=== PATIENT | male | born 1955 ===

== ENCOUNTER → 2022-09-04 09:47 | Outpatient (BNVA) | payer BC, SELFPAY | PROVIDERS: PCP Pediatrics; Visit Provider Nurse Practitioner Family | DX: R97.20 Elevated prostate specific antigen [PSA] (principal); R35.1 Nocturia; N40.0 Benign prostatic hyperplasia without lower urinary tract symptoms | CPT/HCPCS: 51798 ==

== ENCOUNTER 2022-09-22 07:32 | Outpatient (REF) | payer BC, SELFPAY ==
[2022-09-22 12:59] LABS: PSA,Total (Free>4and<10) 3.84 ng/mL (0.00-4.00)
== END 2022-09-22 07:33 | disposition home or self-care (01) ==
LOC: HO.10HDL 07:32
PROVIDERS: Visit Provider Urology
DX: Z12.5 Encounter for screening for malignant neoplasm of prostate (principal); R97.20 Elevated prostate specific antigen [PSA]
CPT/HCPCS: 36415; 84153

== ENCOUNTER 2022-09-22 11:18 | Outpatient (REF) | payer BC, SELFPAY ==
--- NOTE | ~2022-09-22 | US_ITS ---
EXAMINATION: US RETROPERITONEAL COMPLETE (RENAL) CLINICAL INFORMATION: Elevated PSA and BPH. COMPARISON: None. TECHNIQUE: Real-time imaging of the kidneys and bladder. FINDINGS: RIGHT KIDNEY: 10.8 x 6.1 x 6.2 cm (SAG x AP x TRV). The kidney is normal in size, contour, and echogenicity. Renal cortical thickness is normal. No calculi or focal parenchymal lesions. No hydronephrosis. LEFT KIDNEY: 10.6 x 6.1 x 6.2 cm (SAG x AP x TRV). The kidney is normal in size, contour, and echogenicity. Renal cortical thickness is normal. Bosniak class I parapelvic cysts are noted measuring 1.3 and 0.9 cm. These need no additional imaging or follow-up. No solid renal masses. No calculi or focal parenchymal lesions. No hydronephrosis. BLADDER: Well distended and normal. Bilateral ureteral jets are demonstrated. Prevoid bladder volume is 190 mL. Postvoid bladder volume is 22 mL. Prostate is mild to moderately enlarged at 52 g. US/US retroperitoneal comp IMPRESSION: [id number] BPH with 52 g prostate and 22 mL postvoid residual.
== END 2022-09-22 11:19 | disposition home or self-care (01) ==
LOC: HO.HMGCX 11:18
PROVIDERS: PCP Pediatrics; Visit Provider Urology
DX: N40.0 Benign prostatic hyperplasia without lower urinary tract symptoms (principal); R97.20 Elevated prostate specific antigen [PSA]
CPT/HCPCS: 76770

== ENCOUNTER → 2022-09-25 10:29 | Outpatient (BNVA) | payer BC, SELFPAY | PROVIDERS: PCP Pediatrics; Visit Provider Nurse Practitioner Family | DX: Z13.89 Encounter for screening for other disorder (principal) ==

== ENCOUNTER → 2022-10-10 09:55 | Outpatient (BNVA) | payer BC, SELFPAY | PROVIDERS: PCP Pediatrics; Visit Provider Nurse Practitioner Family | DX: Z13.89 Encounter for screening for other disorder (principal) ==

== ENCOUNTER → 2022-12-12 09:17 | Outpatient (BNVA) | payer MEDICARE, BC, SELFPAY | PROVIDERS: PCP Pediatrics; Visit Provider Nurse Practitioner Family | DX: N40.0 Benign prostatic hyperplasia without lower urinary tract symptoms (principal); R97.20 Elevated prostate specific antigen [PSA]; N41.9 Inflammatory disease of prostate, unspecified; R35.1 Nocturia; Z79.899 Other long term (current) drug therapy | CPT/HCPCS: 51798; 99212 ==

== ENCOUNTER 2023-03-09 12:15 | Outpatient (REF) | payer MEDICARE, BC, SELFPAY | END 2023-03-09 12:16 | disposition home or self-care (01) | LOC: HO.WFDLDS 12:15 | PROVIDERS: Visit Provider Nurse Practitioner Family | DX: N40.0 Benign prostatic hyperplasia without lower urinary tract symptoms (principal); R97.20 Elevated prostate specific antigen [PSA]; Z12.5 Encounter for screening for malignant neoplasm of prostate | CPT/HCPCS: 36415; 84153 ==

== ENCOUNTER 2023-03-17 09:18 | Outpatient (AMB) | payer MEDICARE, BC, SELFPAY ==
--- NOTE | 2023-03-17 09:22 | MHC.OFFVIS ---
Intake Intake Visit Reasons: 3m/labs Intake Note: Patient is present for follow up labs/BPH/Elevated PSA/Prostitis/Nocturia Urology Medications: finasteride/terazosin Blood Thinner: none PVR:26ml Long Chain Dyeing Machine Operator Required: No Accompanied by: Self / Same As Patient Allergies No Known Allergies Allergy (Verified 12/12/22 10:21) Medication List - Last Reconciled 03/17/23 by BRIAN Vaughn- finasteride 5 mg PO BEDTIME 90 days terazosin 5 mg PO BEDTIME HPI HPI Comments History of Present Illness Details Gee is a pleasant 67 year old male patient of Dr. Barber who is being seen today for a follow up of his lower urinary tract symptoms. Of note patient, patient was seen approximately 3 months ago at which time he was started on Finasteride and Terazosin 5mg daily. In discussion with the patient today he reports to be doing and feeling well. He reports ongoing lower urinary issues have been intermittent in nature. He discusses symptoms of weak stream, noctutria and a feeling of irritation to the head/tip of his penis during and after urination. He states symptoms tend to improve with increase in hydration. His microgen from 10/06 was negative for microbial indication. He has been treated previously for prostatitis. He reports that symtpoms are vague and there are days where he feels his symptoms of nocturia are 2-4 times per night but then for instance last night he only got up once to urinate. He reports intermittent episodes of random sharp/irritated like pains to the tip of his penis/urethera. When asked patient reports compliance with finasteride. However, discusses taking terazosin as needed.?When asked patient denies hematuria, flank pain, fever, and or chills. Discussed at length importance of taking medication as prescribed. Patient reporting it is difficult to be complaint with urological medications as he finds it challenging for him to accept taking medications daily as this is new for him. He otherwise denies any other urological issues or concerns. He discusses his recent travel to [place]. In office urinalysis results reviewed with the patient today. PVR 26 mL. PSAs are as follows: 09/22--3.8 03/22--2.7 Previous imaging includes as retroperitoneal ultrasound: Right kidney with no calculi, lesions, and or hydronephrosis. Left kidney with Bosniak class 1 peripelvic cyst measuring 1.3 and 0.9 cm. Per radiology reports these need no additional imaging or follow-up. No calculi or lesions noted within the left kidney. The bladder is well distended and normal. Pre void bladder volume is approximately 200 mL. Postvoid bladder volume is approximately 20 mL. Prostate is mildly to moderately enlarged at 52 g. PFSH Medical History Anxiety Herpes genitalia Hyperlipidemia Seasonal allergies Urinary frequency Family History Mother Breast cancer Father Colon cancer Review of Systems Const Reports no additional complaints Eyes Reports no additional complaints ENT Reports no additional complaints Card Reports no additional complaints Resp Reports no additional complaints GI Reports no additional complaints Reports as per HPI Musc Reports no additional complaints Psych Details: patient reports issues with sleeping. He reports going to bed early and then being up early. Reports abnormal sleep pattern Endo Reports no additional complaints Physical Exam Const General: cooperative, healthy appearing, comfortable, no acute distress, well developed, alert and awake Nutritional Appearance: average body habitus Orientation/consciousness: patient oriented x3 Limitations: no limitations HEENT Head: Yes normal to inspection, Yes normocephalic and Yes atraumatic Eyes General: appearance normal, both eyes and all related structures Neck Neck: Yes normal visual inspection and Yes trachea midline Chest Chest palpation & inspection: normal inspection of the chest Cardio Rate: regular rate GI Inspection: Yes normal to inspection General: Yes no CVA tenderness Back/Spine/Pelvis Back: no CVA tenderness Skin General skin exam: no rashes or lesions noted Neuro General: patient oriented x3 Extrem General: Yes normal to inspection Psych Appearance: grossly normal and well kempt Mental Status: mental status grossly normal Speech and movement: Clear speech present Affect: normal affect Attitude: cooperative Thought process: Normal thought process present Thought content: Normal thought content present Insight: Fair insight present (Psych) Judgement: Fair judgement present (Psych) Office Procedures Post Void Residual Post Residual Void Post Void Residual (PVR): 26 [id number] Void Residual by ultrasound Results AMB Urinalysis, Automated UA Leukoctes 0 Sandra/uL Last Edit by Mally Chinchilla on 03/17/23 09:45 UA Nitrite Negative Last Edit by Mally Chinchilla on 03/17/23 09:45 UA Urobilinogen 0.2 mg/dL Last Edit by Mally Chinchilla on 03/17/23 09:45 UA Protein 15 mg/dL Last Edit by Mally Chinchilla on 03/17/23 09:45 UA pH 5.5 Last Edit by Mally Chinchilla on 03/17/23 09:45 UA Blood 0 Rashaad/uL Last Edit by Mally Chinchilla on 03/17/23 09:45 UA Specific [place] 1.030 Last Edit by Mally Chinchilla on 03/17/23 09:45 UA Ketone Negative Last Edit by Mally Chinchilla on 03/17/23 09:45 UA Bilirubin 0 mg/dL Last Edit by Mally Chinchilla on 03/17/23 09:45 UA Glucose 0 mg/dL Last Edit by Mally Chinchilla on 03/17/23 09:45 Results Reviewed Results Reviewed: Laboratory Last Values Urine pH (Auto) 5.5 03/17/23 09:27 Specific [place] (Auto) 1.030 03/17/23 09:27 Urine Protein (Auto) 15 mg/dL 03/17/23 09:27 Glucose (UA)(Auto) 0 mg/dL 03/17/23 09:27 Urine Ketones (Auto) Negative 03/17/23 09:27 Urine Blood (Auto) 0 Rashaad/uL 03/17/23 09:27 Urine Nitrite (Auto) Negative 03/17/23 09:27 Urine Bilirubin (Auto) 0 mg/dL 03/17/23 09:27 Urine Urobilinogen (Auto) 0.2 mg/dL 03/17/23 09:27 Leukocyte Esterase (Auto) 0 Sandra/uL 03/17/23 09:27 Assessment & Plan Assessment & Plan (1) Lower urinary tract symptoms: Code(s): R39.9 - Unspecified symptoms and signs involving the genitourinary system (2) Enlarged prostate: Code(s): N40.0 - Benign prostatic hyperplasia without lower urinary tract symptoms Plan In office urinalysis results reviewed with the patient today. PVR 26 mL. Recent PSA results reviewed with the patient today. Continue finasteride and terazosin as discussed and prescribed. Discussed at length importance of taking medications as prescribed Discussed, educated, encouraged to continue drinking plenty of water daily. Discussed limiting fluids 3-4 hours prior to bed to assist with decreasing episodes of nocturia. Patient with intermittent/vague lower urinary tract symptoms. Discussed recovery of prostatitis can take a few months Follow-up in office cystoscopy for further assessment evaluation. Orders: Orders AMB Urinalysis Automated 03/17/23 N40.0 - Benign prostatic hyperplasia without lower urinary tract symptoms, Z13.9 - Encounter for screening, unspecified AMB Post Void Residual by ultrasound 03/17/23 N40.0 - Benign prostatic hyperplasia without lower urinary tract symptoms Medications: New doxycycline hyclate 100 mg PO BID 14 days 28 tabs 0RF Patient Instructions: The patient had an opportunity to ask questions regarding the treatment plan. All questions were answered. Physical exam, labs, and imaging were discussed and reviewed in detail. As well as risks, benefits, and discussion of treatment choices. No major barriers to understanding were identified. The patient expressed understanding and agreement with the above treatment plan. The patient was made aware they should contact our office by phone for worsening of their current condition, the appearance of new symptoms, or with any questions or concerns. Compliance is encouraged with any medications and follow up testing that is ordered. It is a privilege to be allowed the opportunity to participate in? your urological care.? Again, if you have any questions or concerns If you have any questions or concerns please do not hesitate to contact me. The office is [phone]. This note is constructed using voice recognition software. While every effort has been made to ensure accuracy head of visual merchandising errors may have been included. Yours sincerely, EVAN Vaughn Coding Level of Care Code Est Pt Level 4 (78414) Diagnoses Lower urinary tract symptoms R39.9 Enlarged prostate N40.0 CPT Codes Post Residual Void - PVR CPT Code: 43186-Ciix Void Residual by ultrasound ([id number])
== END 2023-03-17 10:08 | disposition home or self-care (01) ==
PROVIDERS: Visit Provider Nurse Practitioner Family
DX: R39.9 Unspecified symptoms and signs involving the genitourinary system (principal); N40.0 Benign prostatic hyperplasia without lower urinary tract symptoms
CPT/HCPCS: 99214

== ENCOUNTER → 2023-03-17 09:18 | Outpatient (BNVA) | payer MEDICARE, BC, SELFPAY | PROVIDERS: Visit Provider Nurse Practitioner Family | DX: N40.1 Benign prostatic hyperplasia with lower urinary tract symptoms (principal); N13.8 Other obstructive and reflux uropathy; R39.9 Unspecified symptoms and signs involving the genitourinary system; N41.9 Inflammatory disease of prostate, unspecified; R97.20 Elevated prostate specific antigen [PSA]; R35.1 Nocturia; R39.12 Poor urinary stream; N48.89 Other specified disorders of penis; Z79.899 Other long term (current) drug therapy | CPT/HCPCS: 51798; 99212 ==

== ENCOUNTER 2023-05-01 08:48 | Outpatient (AMB) | payer MEDICARE, BC, SELFPAY ==
--- NOTE | 2023-05-01 09:04 | A.OFFVIS_ITS ---
Intake Intake Visit Reasons: cysto Intake Note: Patient is present for Cystoscopy Urology Med: Finasteride, Terazosin, Antibiotic Allergy: None Blood Thinner: None Pharmacy: [facility] Cystoscope used during Procedure LOT#: [id number] EXP: 01/11/2025 Allergies No Known Allergies Allergy (Verified 05/01/23 09:05) Medication List - Last Reconciled 05/01/23 by Manpreet Ramos MD doxycycline hyclate 100 mg PO BID 14 days finasteride 5 mg PO BEDTIME 90 days terazosin 5 mg PO BEDTIME trimethoprim 100 mg PO DAILY 90 days HPI HPI Comments History of Present Illness Details Neck is a pleasant male. He is a patient of Dr. Barber. He seen for the following urologic conditions - lower urinary tract symptoms - urinary tract infection Completed 2 weeks doxycycline for feeling of irritation at the tip of the penis Appeared to respond well PVR 30 cc Continue prostate medications Lower urinary tract symptoms Initial symptom presentation weakness of stream, nocturia and feelings in her taken Prior treatment for prostatitis Reports compliance with finasteride and takes terazosin on a p.r.n. basis Is adverse to taking medications PSA 03/22 2.7 Retroperitoneal ultrasound left kidney Bosniak 1 cyst, prostate 50 g PFSH Medical History Anxiety Herpes genitalia Hyperlipidemia Seasonal allergies Urinary frequency Family History Mother Breast cancer Father Colon cancer Review of Systems Const Denies chills and Denies fever(s) Card Reports no additional complaints and Denies syncope Resp Denies cough GI Denies abdominal pain and Denies heartburn Reports as per HPI and Denies change in libido Neuro Denies syncope Psych Denies change in libido Endo Denies change in libido Physical Exam Const General: cooperative, healthy appearing, comfortable and no acute distress Orientation/consciousness: patient oriented x3 HEENT Face and sinus: Yes normal facial exam Mouth: moist mucous membranes Neck Neck: Yes normal visual inspection, Yes full ROM and Yes trachea midline Chest Chest palpation & inspection: normal inspection of the chest Resp Effort & Inspection: normal respiratory effort, able to speak in complete sentences and no respiratory distress GI Inspection: Yes normal to inspection Back/Spine/Pelvis Cervical Spine: normal cervical lordosis Thoracic/Lumbar Spine: thoracic and lumbar spine normal to inspection Skin General skin exam: no rashes or lesions noted Neuro General: patient oriented x3, gait normal, tone normal and moves all extremities Extrem General: Yes normal to inspection and Yes capillary refill normal Office Procedures Cystoscopy Consent Discussed risk and benefit or proposed procedure with the patient. Information consent for procedure given to the patient. Discussed technical aspects, risks, benefits and alternatives in full. Addressed all of the patient's questions and concerns regarding the procedure. The patient demonstrated knowledge and understanding. They wish to proceed with this procedure. Preparation The patient was prepped in the usual manner. A recycling crew supervisor was present and in the room. Genitalia was prepped with betadine solution in a sterile manner. Lidocaine Jelly 2% was placed into the urethra and 16Fr flexible Olympus cystoscope was inserted into the meatus after adequate lubrication. 62109-Qydrmfynvu DISPOSABLE SCOPE URO-G FLEXIBLE SCOPE Procedure code (CPT) selection complete Office Meds lidocaine HCl 2 % mucosal jelly in applicator Performing Provider: Manpreet Ramos MD Performing Location: [facility] Administered by: Kelsey Steiner RN on 05/01/23 09:18 Dose Route Admin Location Dispensed Lot Number Expiration Date NDC Maintenance Helper 10 mL intra-urethral 10 mL nitrofurantoin monohydrate/macrocrystals 100 mg capsule Performing Provider: Manpreet Ramos MD Performing Location: [facility] Administered by: Kelsey Steiner RN on 05/01/23 09:18 Dose Route Admin Location Dispensed Lot Number Expiration Date NDC Maintenance Helper 100 mg PO 1 cap naproxen 500 mg tablet Performing Provider: Manpreet Ramos MD Performing Location: [facility] Administered by: Kelsey Steiner RN on 05/01/23 09:18 Dose Route Admin Location Dispensed Lot Number Expiration Date NDC Maintenance Helper 500 mg PO 1 tab Results AMB Urinalysis, Automated UA Leukoctes 0 Sandra/uL Last Edit by RICHELLE Sanon on 05/01/23 09:11 UA Nitrite Negative Last Edit by RICHELLE Sanon on 05/01/23 09:11 UA Urobilinogen 0.2 mg/dL Last Edit by RICHELLE Sanon on 05/01/23 09:1 1 UA Protein 0 mg/dL Last Edit by Skye Mccullough A on 05/01/23 09:11 UA pH 5.0 Last Edit by Skye Mccullough, A on 05/01/23 09:11 UA Blood 0 Rashaad/uL Last Edit by Skye Mccullough, A on 05/01/23 09:11 UA Specific [place] 1.020 Last Edit by Skye Mccullough A on 05/01/23 09: 11 UA Ketone Negative Last Edit by Skye Mccullough, RMA on 05/01/23 09:11 UA Bilirubin 0 mg/dL Last Edit by Skye Mccullough, A on 05/01/23 09:11 UA Glucose 0 mg/dL Last Edit by Skye Mccullough A on 05/01/23 09:11 Results Reviewed Results Reviewed: Laboratory Last Values Urine pH (Auto) 5.0 05/01/23 09:05 Specific [place] (Auto) 1.020 05/01/23 09:05 Urine Protein (Auto) 0 mg/dL 05/01/23 09:05 Glucose (UA)(Auto) 0 mg/dL 05/01/23 09:05 Urine Ketones (Auto) Negative 05/01/23 09:05 Urine Blood (Auto) 0 Rashaad/uL 05/01/23 09:05 Urine Nitrite (Auto) Negative 05/01/23 09:05 Urine Bilirubin (Auto) 0 mg/dL 05/01/23 09:05 Urine Urobilinogen (Auto) 0.2 mg/dL 05/01/23 09:05 Leukocyte Esterase (Auto) 0 Sandra/uL 05/01/23 09:05 Assessment & Plan Assessment & Plan (1) Lower urinary tract symptoms: Code(s): R39.9 - Unspecified symptoms and signs involving the genitourinary system (2) Nocturia: Code(s): R35.1 - Nocturia (3) Prostatitis: Code(s): N41.9 - Inflammatory disease of prostate, unspecified Qualifiers: Prostatitis type: chronic Qualified Code(s): N41.1 - Chronic prostatitis Plan Trial daily low-dose trimethoprim Orders: Orders AMB Urinalysis Automated 05/01/23 Z13.9 - Encounter for screening, unspecified AMB Cystoscopy 05/01/23 N40.0 - Benign prostatic hyperplasia without lower urinary tract symptoms Medications: New trimethoprim 100 mg PO DAILY 90 tabs 1RF 90 days N41.9 - Inflammatory disease of prostate, unspecified, R33.9 - Retention of urine, unspecified Patient Instructions: Imaging studies, laboratory and physical exam results were discussed and reviewed in detail. No major barriers to patient understanding were identified. An opportunity to ask questions regarding the treatment plan was provided. All questions were answered. The patient expressed understanding and agreement with the above treatment plan. The patient is aware they should contact our office by phone for worsening of their current condition or the appearance of new urologic symptoms. Compliance is encouraged with any medications and followup testing that is ordered. It is a privilege to participate in the urologic care of your patient. If you have any questions or concerns regarding treatment for the above conditions, or other urologic issues, please do not hesitate to contact me. The office te tomas contact is [phone]. This note is constructed using voice recognition software. While every effort has been made to ensure accuracy automatic machines supervisor errors may have been included. Yours sincerely, Dr Manpreet Ramos MD, [facility] - Urology Providers of Expert, Compassionate Care for the Genitourinary System Coding Level of Care Code Est Pt Level 4 (36929) Diagnoses Lower urinary tract symptoms R39.9 Nocturia R35.1 Chronic prostatitis N41.1 Prostatitis type: chronic CPT Codes Cystoscopy - CPT: 37158-Snkcogyykt ([id number]) Cystoscopy - CPT: DISPOSABLE SCOPE URO-G FLEXIBLE SCOPE ([id number])
== END 2023-05-01 09:50 | disposition home or self-care (01) ==
PROVIDERS: PCP Pediatrics; Visit Provider Urology
DX: N40.0 Benign prostatic hyperplasia without lower urinary tract symptoms (principal); Z13.9 Encounter for screening, unspecified
CPT/HCPCS: 52000

== ENCOUNTER → 2023-05-01 08:48 | Outpatient (BNVA) | payer MEDICARE, BC, SELFPAY | PROVIDERS: PCP Pediatrics; Visit Provider Urology | DX: R39.9 Unspecified symptoms and signs involving the genitourinary system (principal); R35.1 Nocturia; N41.1 Chronic prostatitis | CPT/HCPCS: 52000; 81003; C1747 ==

== ENCOUNTER 2023-09-18 08:47 | Outpatient (AMB) | payer MEDICARE, BC, SELFPAY ==
--- NOTE | 2023-09-18 08:55 | A.OFFVIS_ITS ---
Intake Intake Visit Reasons: 3M Med Review(Trimethoprim) Intake Note: Patient is Present for Follow Up Med review Urology Medication: Finasteride, Terazosin, Trimethoprim Antibiotic Allergies: None Blood Thinners: None PVR: 40 Allergies No Known Allergies Allergy (Verified 09/18/23 08:59) HPI HPI Comments History of Present Illness Details Neck is a pleasant male. He is a patient of Dr. Barber. He seen for the following urologic conditions - lower urinary tract symptoms - urinary tract infection - pelvic floor dysfunction - prostatitis Ongoing grumbling prostatitis Seems to be controlled on daily trimethoprim DAVID shows tight pelvic floor left anterior side of pelvis Recommend pelvic floor physical therapy Six-month follow-up Lower urinary tract symptoms Initial symptom presentation weakness of stream, nocturia and feelings in her taken Prior treatment for prostatitis Reports compliance with finasteride and takes terazosin on a p.r.n. basis Is adverse to taking medications PSA 03/22 2.7 Retroperitoneal ultrasound left kidney Bosniak 1 cyst, prostate 50 g PFSH Medical History Urinary frequency Seasonal allergies Hyperlipidemia Herpes genitalia Anxiety Family History Mother Breast cancer Father Colon cancer Review of Systems Const Denies chills and Denies fever(s) Card Reports no additional complaints and Denies syncope Resp Denies cough GI Denies abdominal pain and Denies heartburn Reports as per HPI and Denies change in libido Neuro Denies syncope Psych Denies change in libido Endo Denies change in libido Physical Exam Const General: cooperative, healthy appearing, comfortable and no acute distress Orientation/consciousness: patient oriented x3 HEENT Face and sinus: Yes normal facial exam Mouth: moist mucous membranes Neck Neck: Yes normal visual inspection, Yes full ROM and Yes trachea midline Chest Chest palpation & inspection: normal inspection of the chest Resp Effort & Inspection: normal respiratory effort, able to speak in complete sentences and no respiratory distress GI Inspection: Yes normal to inspection Rectal Exam - Male: Yes normal sphincter tone and Yes prostate normal Male General Exam: Yes normal external exam Penis: normal penis and circumcised Meatus: meatus normal Scrotum: scrotum normal Testes: Testes normal Back/Spine/Pelvis Cervical Spine: normal cervical lordosis Thoracic/Lumbar Spine: thoracic and lumbar spine normal to inspection Skin General skin exam: no rashes or lesions noted Neuro General: patient oriented x3, gait normal, tone normal and moves all extremities Extrem General: Yes normal to inspection and Yes capillary refill normal Office Procedures Post Void Residual Post Residual Void Post Void Residual (PVR): 40 [id number] Void Residual by ultrasound Assessment & Plan Assessment & Plan (1) Pelvic floor tension: Code(s): M62.89 - Other specified disorders of muscle (2) Lower urinary tract symptoms: Code(s): R39.9 - Unspecified symptoms and signs involving the genitourinary system (3) Prostatitis: Code(s): N41.9 - Inflammatory disease of prostate, unspecified Qualifiers: Prostatitis type: chronic Qualified Code(s): N41.1 - Chronic prostatitis Plan Pelvic floor physical therapy Continue prostatitis suppression Orders: Orders AMB Post Void Residual by ultrasound Today N40.0 - Benign prostatic hyperplasia without lower urinary tract symptoms PT Evaluation and Treatment Today M62.89 - Other specified disorders of muscle, R10.2 - Pelvic and perineal pain Medications: Changed From terazosin 5 mg PO BEDTIME N41.1 - Chronic prostatitis To terazosin 5 mg PO BEDTIME 90 caps 1RF 90 days N41.1 - Chronic prostatitis Refilled finasteride 5 mg PO BEDTIME 90 tabs 1RF 90 days N41.1 - Chronic prostatitis trimethoprim 100 mg PO DAILY 90 tabs 1RF 90 days N41.9 - Inflammatory disease of prostate, unspecified, R33.9 - Retention of urine, unspecified Patient Instructions: Imaging studies, laboratory and physical exam results were discussed and reviewed in detail. No major barriers to patient understanding were identified. An opportunity to ask questions regarding the treatment plan was provided. All questions were answered. The patient expressed understanding and agreement with the above treatment plan. The patient is aware they should contact our office by phone for worsening of their current condition or the appearance of new urologic symptoms. Compliance is encouraged with any medications and followup testing that is ordered. It is a privilege to participate in the urologic care of your patient. If you have any questions or concerns regarding treatment for the above conditions, or other urologic issues, please do not hesitate to contact me. The office telephone contact is [phone]. This note is constructed using voice recognition software. While every effort has been made to ensure accuracy practice director errors may have been included. Yours sincerely, Dr Manpreet Ramos MD, [facility] - Urology Providers of Expert, Compassionate Care for the Genitourinary System Coding Level of Care Code Est Pt Level 4 (76431) Diagnoses Pelvic floor tension M62.89 Lower urinary tract symptoms R39.9 Chronic prostatitis N41.1 Prostatitis type: chronic CPT Codes Post Residual Void - PVR CPT Code: 31774-Djmk Void Residual by ultrasound ([id number])
== END 2023-09-18 09:37 | disposition home or self-care (01) ==
PROVIDERS: PCP Pediatrics; Visit Provider Urology
DX: M62.89 Other specified disorders of muscle (principal); R39.9 Unspecified symptoms and signs involving the genitourinary system; N41.1 Chronic prostatitis
CPT/HCPCS: 99213

== ENCOUNTER → 2023-09-18 08:47 | Outpatient (BNVA) | payer MEDICARE, BC, SELFPAY | PROVIDERS: PCP Pediatrics; Visit Provider Urology | DX: M62.89 Other specified disorders of muscle (principal); R39.9 Unspecified symptoms and signs involving the genitourinary system; N41.1 Chronic prostatitis | CPT/HCPCS: 51798; 99212 ==

== ENCOUNTER 2024-04-08 09:46 | Outpatient (REF) | payer MEDICARE, BC, SELFPAY ==
[2024-04-08 12:09] LABS: Prostate Specific Antigen 2.08 ng/mL (<0.05-4.0)
== END 2024-04-08 09:47 | disposition home or self-care (01) ==
LOC: HO.WFDLDS 09:46
PROVIDERS: Visit Provider Urology
DX: R97.20 Elevated prostate specific antigen [PSA] (principal); Z12.5 Encounter for screening for malignant neoplasm of prostate
CPT/HCPCS: 36415; 84153

== ENCOUNTER 2024-04-19 08:39 | Outpatient (AMB) | payer MEDICARE, BC, SELFPAY ==
--- NOTE | 2024-04-19 08:35 | MHC.OFFVIS ---
Intake Visit Reasons: 6M Follow up-Prostatits/PSA(set) Intake Note: Patient is Present for 6m f/u prostatits Urology Medication: Finasteride, Terazosin, Trimethoprim Antibiotic Allergies: None Blood Thinners: None Stone And Plate Preparer Apprentice Required: No Allergies No Known Allergies Allergy (Verified 04/19/24 08:37) Medication List - Last Reconciled 04/19/24 by Manpreet Ramos MD doxycycline hyclate 100 mg PO BID 14 days finasteride 5 mg PO BEDTIME 90 days terazosin 5 mg PO BEDTIME 90 days trimethoprim 100 mg PO DAILY 90 days HPI Comments Details: Junito is a pleasant male. He is a patient of Dr. Barber. He seen for the following urologic conditions - lower urinary tract symptoms - urinary tract infection - pelvic floor dysfunction - prostatitis Telemedicine Evaluation 15 min Consultation [place] Video attempted Will stop trimethoprim Stop finasteride Planning pelvic floor physical therapy starting this week Six-month follow-up Lower urinary tract symptoms Initial symptom presentation weakness of stream, nocturia and feelings in her taken Prior treatment for prostatitis Reports compliance with finasteride and takes terazosin on a p.r.n. basis Is adverse to taking medications PSA 03/22 2.7, 04/23 2.1 Retroperitoneal ultrasound left kidney Bosniak 1 cyst, prostate 50 g PFSH Medical History Urinary frequency Seasonal allergies Hyperlipidemia Herpes genitalia Anxiety Family History Mother Breast cancer Father Colon cancer Review of Systems Const All systems reviewed & are unremarkable except as noted in HPI and below Reports no additional complaints Resp Reports no additional complaints GI Reports no additional complaints Reports as per HPI Musc Reports no additional complaints Physical Exam Telemedicine evaluation Appropriate responses Regular breathing rate and rhythm HEENT Head: Yes normal to inspection Ears: hearing grossly normal bilaterally Eyes General: appearance normal, both eyes and all related structures Neck Neck: Yes normal visual inspection Chest Chest palpation & inspection: normal inspection of the chest Resp Effort & Inspection: normal respiratory effort and able to speak in complete sentences Telehealth Telehealth Location of provider rendering services: practice address Location of patient: address on file Patient Identification confirmed using: Name, : Yes Telehealth method: voice only Patient verbally consented to treatment: Yes Patient verbally consented to billing insurance company: Yes Patient informed of any privacy concerns related to visit: Yes Assessment & Plan Assessment & Plan (1) Prostatitis: Code(s): N41.9 - Inflammatory disease of prostate, unspecified Category: Medical Qualifiers: Prostatitis type: chronic Qualified Code(s): N41.1 - Chronic prostatitis (2) Pelvic floor tension: Code(s): M62.89 - Other specified disorders of muscle Category: Medical Plan Stop trimethoprim and finasteride Orders: Orders Prostate Specific Antigen 04/08/24 R97.20 - Elevated prostate specific antigen [PSA] Prostate Specific Antigen 6 Months N41.1 - Chronic prostatitis Medications: Refilled trimethoprim 100 mg PO DAILY 90 days 90 tabs 1RF N41.9 - Inflammatory disease of prostate, unspecified, R33.9 - Retention of urine, unspecified Patient Instructions: Imaging studies, laboratory and physical exam results were discussed and reviewed in detail. No major barriers to patient understanding were identified. An opportunity to ask questions regarding the treatment plan was provided. All questions were answered. The patient expressed understanding and agreement with the above treatment plan. The patient is aware they should contact our office by phone for worsening of their current condition or the appearance of new urologic symptoms. Compliance is encouraged with any medications and followup testing that is ordered. It is a privilege to participate in the urologic care of your patient. If you have any questions or concerns regarding treatment for the above conditions, or other urologic issues, please do not hesitate to contact me. The office telephone contact is [phone]. This note is constructed using voice recognition software. While every effort has been made to ensure accuracy eggs inspector errors may have been included. Yours sincerely, Dr Manpreet Ramos MD, [facility] - Urology Providers of Expert, Compassionate Care for the Genitourinary System Coding Level of Care Code Tele Est Pt Level 3 (64547) Diagnoses Chronic prostatitis N41.1 Prostatitis type: chronic Pelvic floor tension M62.89
--- OUTSIDE RECORDS SUMMARY | 2024-04-20 08:08 | XMS_ITS | Continuity of Care Document ---
Author Organization [facility] ter Address [address] [place] [address]- Care Team Providers Care Employment Manager Name Role Phone Betty Barber MD Primary Care Physician Encounter 04/02/24 - 04/03/[address] [address] Attending Physician: Not on Staff, Attending MD Referring Physician: Not on Staff, Referring MD Allergies, Adverse Reactions, Alerts Substance Reaction Severity Status Pollen Persistent Mild Active house dust mite allergen extract Persiste nt Mild Active Immunizations Given and Recorded Vaccine Date Status Refusal Reason SARS-CoV-2 (COVID-19) mRNA-1273 vaccine 12/23/20 R ecorded SARS-CoV-2 (COVID-19) mRNA-1273 vaccine 11/25/20 R ecorded Influenza Virus Vaccine (oldterm) 06/13/19 Recorde d zoster vaccine, inactivated 08/15/18 Recorded influenza virus vaccine, inactivated 07/14/18 Irving rded influenza virus vaccine, inactivated 06/25/18 Irving rded influenza virus vaccine, inactivated 07/02/17 Irving rded influenza virus vaccine, inactivated 06/24/17 Irving rded influenza virus vaccine, inactivated 1 07/25/16 Gi hussain influenza virus vaccine, inactivated 07/06/15 Irving rded tetanus/diphtheria/pertussis, acel(Tdap) 2 07/25/16 Given 1Result Comment: [07/25/2016] pt tolerated injection well to Left Deltoid 2Result Comment: [07/25/2016] pt tolerated injection well to the Right Deltoid Medications finasteride 5 mg oral tablet 1 tablet = 5 mg, By Mouth, Daily, # 30 tablet, 0 Refills, Maintenance, 09/04/23 9:24:00 EST, Tablet, Partial fill upon patient request if the prescription is for a schedule II opioid drug. Start Date: 09/04/23 Status: Ordered Flomax 0.4 mg oral capsule 0.4 mg, 1, capsule, By Mouth, Daily, # 30 capsule, Refills 3, Tot. Refills 3, Maintenance, 07/21/2216:04:00 EST, Route to Pharmacy Electronically, [facility][id number], Partial fill upon patient request if the prescription is for a schedule II... Start Date: 07/21/22 Status: Ordered Fluticasone Nasal 0 Refills, Maintenance, 09/04/23 9:23:00 EST, Partial fill upon patient request if the prescriptionis for a schedule II opioid drug. Start Date: 09/04/23 Status: Ordered LORazepam 1 mg oral tablet 1 tablet = 1 mg, By Mouth, Daily, 1 tablet prior to flight, # 2 tablet, 0 Refills, Maintenance, 12/08/18 16:26:44 EDT Start Date: 12/08/18 Status: Ordered terazosin 5 mg oral capsule 5 mg, 1, capsule, By Mouth, Daily at bedtime, # 30 capsule, Refills 0, Maintenance, 09/04/23 9:24:00 EST, Partial fill upon patient request if the prescription is for a schedule II opioid drug. Start Date: 09/04/23 Status: Ordered traZODone 50 mg oral tablet 50 mg, 1, tablet, By Mouth, Daily at bedtime, # 30 tablet, Refills 5, Tot. Refills 5, Maintenance, 02/21/21 12:12:00 EDT, Route to Pharmacy Electronically, [facility] #[id number], 178, cm, 01/15/21 7:46:00 EDT, Height Start Date: 02/21/21 Status: Ordered trimethoprim 100 mg oral tablet 1 tablet = 100 mg, By Mouth, Every 12 hours, 0 Refills, Maintenance, 09/04/23 9:26:00 EST, Partial fill upon patient request if the prescription is for a schedule II opioid drug. Start Date: 09/04/23 Status: Ordered valacyclovir 1 gm oral tablet 0.5 tab, By Mouth, 2 times a day, as needed for outbreaks, # 30 tablet, 1 Refills, Acute 09/04/24 10:08:00 EST, 09/04/23 10:07:00 EST, Tablet, [facility] #[id number], Partial fill upon patient request if the prescription is for a schedule II opio... Start Date: 09/04/23 Stop Date: 09/04/24 Status: Ordered Problem List Condition Confirmation Course Effective Dates Status H ealth Status Informant Anxiety Confirmed Active Herpes genitalia Confirmed Active Hyperlipidemia Confirmed Active Urinary frequency Confirmed Active Health maintenance examination Confirmed Active Seasonal allergies Confirmed Active Social History Social History Type Response Smoking Status Former smoker; Other : quit 1992; entered on: 07/25/16 Sex Patient Care team information Care Team Personnel Name: Betty Barber MD Position: [facility] Physician - Primary Care Member Role: PCP Address: Address: [address] [place] [address] - [place] [address]- Care Team Related Persons Name: AMIE ALICIA Name: BISHNU CR Address: home [address] [place] [address]
--- OUTSIDE RECORDS SUMMARY | 2024-04-20 08:08 | XMS_ITS | Continuity of Care Document ---
Author Organization [facility] Address [address] [place] [address]- Care Team Providers Care Nba Player Name Role Phone Elisabeth MERCADO, Betty Chong Primary Care Physician [facility]counter [facility] Date(s): 02/26/24 - 03/27/24 [facility] [address] [place] [address]- Allergies, Adverse Reactions, Alerts Substance Reaction Severity [...] Maintenance, 07/21/2216:04:00 EST, Route to Pharmacy Electronically, [facility] #[id number], Partial fill upon patient request if the [...] 02/21/21 12:12:00 EDT, Route to Pharmacy Electronically, [facility] #[id number], 178, cm, 01/15/21 7:46:00 EDT, Height Start [...] 09/04/24 10:08:00 EST, 09/04/23 10:07:00 EST, Tablet, [facility] #[id number], Partial fill upon patient request if the [...] Care team information Care Team Personnel Name: Elisabeth MERCADO, Betty Chong Position: [facility] Physician - Primary Care Member Role: PCP Address: Address: [address] [place] [address] - [place] [address]- Care Team Related Persons Name: MAIE ALICIA Name: BISHNU CR Address: [address] [address]
--- OUTSIDE RECORDS SUMMARY | 2024-04-20 08:08 | XMS_ITS | Continuity of Care Document ---
Author Organization [facility] Address [address] [place] [address]- Care Team Providers Care Patient Admitting Clerk Name Role Phone Elisabeth MERCADO, Betty Chong Primary Care Physician Encounter [facility] Date(s): 09/04/23 - 10/04/23 [facility] [address] [place] [address]- Attending Physician: Angela Diaz Admitting Physician: AdmAngela wolfe Referring Physician: AdmtrAngela Allergies, Adverse Reactions, Alerts Substance Reaction Severity [...] Maintenance, 07/21/2216:04:00 EST, Route to Pharmacy Electronically, [facility] #[id number], Partial fill upon patient request if the [...] 02/21/21 12:12:00 EDT, Route to Pharmacy Electronically, [facility] #[id number], 178, cm, 01/15/21 7:46:00 EDT, Height Start [...] 09/04/24 10:08:00 EST, 09/04/23 10:07:00 EST, Tablet, [facility] #[id number], Partial fill upon patient request if the [...] : quit 1992; entered on: 07/25/16 Sex Laboratory * Event Display: Non Lab Results Authored Date: Patient Care team information Care Team Personnel Name: Elisabeth MERCADO, Betty Chong Position: [facility] Physician - Primary Care Member Role: PCP Address: Address: [address] [place] [address] - [place] [address]- Care Team Related Persons Name: AMIE ALICIA Name: BISHNU CR Address: home [address] [place] [address]
--- OUTSIDE RECORDS SUMMARY | 2024-04-20 08:08 | XMS_ITS | Continuity of Care Document ---
Author Organization [facility] Address [address] [place] [address]- Care Team Providers Care Fire Ranger Name Role Phone Elisabeth MERCADO, Betty Chong Primary Care Physician Encounter [facility] Date(s): 01/27/24 - 02/26/24 [facility] [address] [place], [place] [address] Allergies, Adverse Reactions, Alerts Substance Reaction Severity [...] Maintenance, 07/21/2216:04:00 EST, Route to Pharmacy Electronically, [facility] #[id number], Partial fill upon patient request if the [...] 02/21/21 12:12:00 EDT, Route to Pharmacy Electronically, [facility] #[id number], 178, cm, 01/15/21 7:46:00 EDT, Height Start [...] 09/04/23 10:07:00 EST, Tablet, [facility][id number], Partial fill upon patient request if the [...] Personnel Name: Elisabeth MERCADO, Betty Chong Position: [facility] Physician - Primary Care Member Role: PCP Address: Address: [address] [place] [address] - [place] [address]- Care Team Related Persons Name: AMIE ALICIA Name: BISHNU CR Address: [address] [address]
--- OUTSIDE RECORDS SUMMARY | 2024-04-20 08:08 | XMS_ITS | Continuity of Care Document ---
Author Organization [facility] Address [address] [place] [address]- Care Team Providers Care Shotgun Shell Assembly Machine Adjuster Name Role Phone Betty Barber MD Primary Care Phys[id number] Date[facility] 09[facility]04/23 - 09/11/23 [facility] [address] [place] [address]- Attending Physician: Betty Barber MD Allergies, Adverse Reactions, Alerts Substance Reaction [...] Maintenance, 07/21/2216:04:00 EST, Route to Pharmacy Electronically, [facility] #[id number], Partial fill upon patient request if the [...] 02/21/21 12:12:00 EDT, Route to Pharmacy Electronically, [facility] #[id number], 178, cm, 01/15/21 7:46:00 EDT, Height Start [...] 09/04/24 10:08:00 EST, 09/04/23 10:07:00 EST, Tablet, [facility] #[id number], Partial fill upon patient request if the prescription is for a schedule II opio... Start Date: 09/04/23 Stop Date: 09/04/24 Status: Ordered Problem List Condition Confirmation Course Effective Dates Status H ealth Status Informant Anxiety Confirmed Active Herpes genitalia Confirmed Active Hyperlipidemia Confirmed Active Urinary frequency Confirmed Active Health maintenance examination Confirmed Active Seasonal allergies Confirmed Active Vital Signs Most recent to oldest [Reference Range]: 1 Height 178 cm (09/04/23 9:15 AM) Weight 84.9 kg (09/04/23 9:15 AM) Oxygen Saturation [94-100 %] 97 % (09/04/23 9:15 AM) Pulse Rate [55-90 bpm] 72 bpm (09/04/23 9:15 AM) Body Mass Index [18.5-24.99 kg/m2] 26.8 kg/m2 *H* (09/04/23 9:15 AM) Blood Pressure [90-138/55-84 mm Hg] 123/ 76mm Hg (09/04/23 9:15 AM) Blood pressure sites Arm, right (09/04/23 9:15 AM) Weight Obtained Via Standing scale (09/04/23 9:15 AM) Social History Social History Type Response Smoking Status Former smoker; Other : quit 1992; entered on: 07/25/16 Sex Note * Inderjit Gomez: PERFORM, SIGN, VERIFY Event Display: Patient Education/Instruction Authored Date: [id number] [facility] *[facility] Clinical Summary Name FELI MONTEMAYOR Age 67 Years 1955 PCP Elisabeth MERCADO, Betty Chong PCP Visit Date 09/04/2023 09:04:00 Additional Instructions: Scheduled Appointments?? Future Appointments ?No Future Appointments Scheduled Follow-Up Instructions ?? Diagnosis Medications: Please continue your medications until treatment is completed or stopped by your provider. Discuss any questions related to medications with your provider. New Medications [facility] #[id number], [address] [place], [place] [id number], [phone] ValACYclovir (valacyclovir 1 gm oral tablet) 0.5 tab Oral twice a day. as needed for outbreaks. Refills: 1. Next Dose: Medications to Continue with No Changes These medications were not printed or sent to your pharmacy Finasteride (finasteride 5 mg oral tablet) 1 tab(s) Oral Daily. Next Dose: Fluticasone Nasal Next Dose: Lorazepam (LORazepam 1 mg oral tablet) 1 tab(s) Oral Daily. 1 tablet prior to flight. Refills: 0. Next Dose: Tamsulosin (Flomax 0.4 mg oral capsule) 1 capsule Oral Daily. Refills: 3. Next Dose: Terazosin (terazosin 5 mg oral capsule) 1 capsule Oral Daily at Bedtime. Next Dose: Trazodone (traZODone 50 mg oral tablet) 1 tab(s) Oral Daily at Bedtime. Refills: 5. Next Dose: Trimethoprim (trimethoprim 100 mg oral tablet) 1 tab(s) Oral every 12 hours. Next Dose: Allergy Info:?? house dust mite allergen extract; Pollen Medications Given This Visit Future Orders ?No future orders Vital Signs Height 178 cm Weight 84.9 kg BMI 26.8 kg/m2 Blood Pressure 123 mm Hg/76 mm Hg Temperature Pulse Rate 72 bpm Respiratory Rate 02 Sat Mode of Delivery 97 %/ You can now view a summary of your hospital visit from the comfort of your home through a free online portal called [facility]. [facility] is a website that allows you to securely view your medical information including discharge summary, medications and follow-up visits. ??You can alsosend a secure electronic message to your doctor???s office to request appointments, renew medications or just ask a question. You can enroll at [email or web address] or register during your next office visit. Disclaimer:?? The information provided is of a general nature and is intended to be used in conjunction with the recommendations and advice of your health care practitioner. ??Every effort has been made to ensure that the information provided is accurate and complete at the time it is provided to you however, as your needs change, or, as new ??information becomes available, different or additional instructions may be required. If you have questions, please consult with your primary care provider or pharmacist, as appropriate. ??This information is not intended to serve as substitution for assessment and evaluation by a qualified health care provider. If you do not have a primary care provider, you may find a [facility] provider by calling [facility] at [phone]. [facility], in keeping with [facility] guidance, no longer requires face masks for staff, patientsor visitors in most situations. Similar to time spent indoors at other locations, there is the chance that you were exposed to respiratory viruses during your time with us (such as flu or COVID-19).? If you develop symptoms concerning for a viral respiratory infection, please seek testing (and treatment if indicated) from your medical provider or home test kit. For information about the plan of care including goals and instructions for your diagnosis, please see the patient education orders section of this document. Patient Education Materials?? The content of this educational material or handout may have been modified, supplemented, or adapted from its original content and format to support your individualized medical care. Patient Care team information Care Team Personnel Name: Betty Barber MD Position: [facility] Physician - Primary Care Member Role: PCP Address: Address: [address] [place] [address] - [place] [address]- Care Team Related Persons Name: AMIE ALICIA Name: BISHNU CR Address: home [address] [place], [place] [address]
--- OUTSIDE RECORDS SUMMARY | 2024-04-20 08:08 | XMS_ITS | Continuity of Care Document ---
Author Organization [facility] Address [address] [place] [address]- Care Team Providers Care Senior Accounting Analyst Name Role Phone Elisabeth MERCADO, Betty Chong Primary Care Physician [facility] Date(s): 12/30/23 - 01/29/24 [facility] [address] [place] [address]- Attending Physician: Angela Diaz Admitting Physician: Angela Diaz Referring Physician: AdmtrAngela Allergies, Adverse Reactions, Alerts [...] Maintenance, 07/21/2216:04:00 EST, Route to Pharmacy Electronically, [facility] #[id number], Partial fill upon patient request if the [...] 02/21/21 12:12:00 EDT, Route to Pharmacy Electronically, [facility] #[id number], 178, cm, 01/15/21 7:46:00 EDT, Height Start [...] 09/04/24 10:08:00 EST, 09/04/23 10:07:00 EST, Tablet, [facility] #[id number], Partial fill upon patient request if the [...] Team Personnel Name: Betty Barber MD Position: [facility] Physician - Primary Care Member Role: PCP Address: Address: [address] [place] [address] - [place] [address]- Care Team Related Persons Name: AMIE ALICIA Name: BISHNU CR Address: home [address] [place] [address]
--- OUTSIDE RECORDS SUMMARY | 2024-04-20 08:08 | XMS_ITS | Continuity of Care Document ---
Author Organization [facility] Address [address] [place] [address]- Care Team Providers Care Venereal Disease Investigator Name Role Phone Elisabeth MERCADO, Betty Chong Primary Care Physician [facility]counter [facility] Date(s): 08/04/23 - 09/03/23 [facility] [address] [place], [place] [address] Allergies, Adverse Reactions, Alerts No Known Allergies Immunizations Given and Recorded Vaccine Date Status [...] injection well to the Right Deltoid Medications Flomax 0.4 mg oral capsule 0.4 mg, 1, capsule, By Mouth, Daily, # 30 capsule, Refills 3, Tot. Refills 3, Maintenance, 07/21/2216:04:00 EST, Route to Pharmacy Electronically, [facility] #[id number], Partial fill upon patient request if the prescription is for a schedule II... Start Date: 07/21/22 Status: Ordered LORazepam 1 mg oral tablet 1 tablet = 1 mg, By Mouth, Daily, 1 tablet prior to flight, # 2 tablet, 0 Refills, Maintenance, 12/08/18 16:26:44 EDT Start Date: 12/08/18 Status: Ordered traZODone 50 mg oral tablet 50 mg, 1, tablet, By Mouth, Daily at bedtime, # 30 tablet, Refills 5, Tot. Refills 5, Maintenance, 02/21/21 12:12:00 EDT, Route to Pharmacy Electronically, [facility] #[id number], 178, cm, 01/15/21 7:46:00 EDT, Height Start Date: 02/21/21 Status: Ordered Valtrex 1 gm oral tablet See Instructions, 0.5 tablet By Mouth 2 times a day, # 30 tablet, 3 Refills, Maintenance, 08/29/22 13:11:00 EST, Tablet, [facility] #[id number], 178, cm, 07/17/22 8:37:00 EST, Height Start Date: 08/29/22 Status: Ordered Problem List Condition Confirmation Course [...] Team Personnel Name: Betty Barber MD Position: [facility] Physician - Primary Care Member Role: PCP Address: Address: [address] [place] [address]- Care Team Related Persons Name: AMIE ALICIA Name: BISHNU CR Address: home [address] [place] [address]
--- OUTSIDE RECORDS SUMMARY | 2024-04-20 08:08 | XMS_ITS | Continuity of Care Document ---
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 Name Role Phone Elisabeth MERCADO, Betty Chong Primary Care Physician Encounter [facility] Date(s): 12/30/23 - 01/06/24 [facility] [address] [place] [address]- Encounter Diagnosis Work related injury(Discharge Diagnosis) - 12/30/23 Attending Physician: Rola Jasmine NP Allergies, Adverse Reactions, Alerts Substance Reaction Severity [...] Maintenance, 07/21/2216:04:00 EST, Route to Pharmacy Electronically, [facility] #[id number], Partial fill upon patient request if the [...] 02/21/21 12:12:00 EDT, Route to Pharmacy Electronically, [facility] #[id number], 178, cm, 01/15/21 7:46:00 EDT, Height Start [...] 09/04/24 10:08:00 EST, 09/04/23 10:07:00 EST, Tablet, [facility] #[id number], Partial fill upon patient request if the prescription is for a schedule II opio... Start Date: 09/04/23 Stop Date: 09/04/24 Status: Ordered Problem List Condition Confirmation Course Effective Dates Status H ealth Status Informant Anxiety Confirmed Active Herpes genitalia Confirmed Active Hyperlipidemia Confirmed Active Urinary frequency Confirmed Active Health maintenance examination Confirmed Active Seasonal allergies Confirmed Active Diagnosis Diagnosis Type Effective Dates Health Status Cl inical Service Informant Work related injury Discharge Diagnosis 12/30/23 Vital Signs Most recent to oldest [Reference Range]: 1 Height 178 cm (12/30/23 11:23 AM) Weight 85.2 kg (12/30/23 11:23 AM) Oxygen Saturation [94-100 %] 96 % (12/30/23 11:23 AM) Pulse Rate [55-90 bpm] 86 bpm (12/30/23 11:23 AM) Body Mass Index [18.5-24.99 kg/m2] 26.89 kg/m2 *H* (12/30/23 11:23 AM) Blood Pressure [90-138/55-84 mm Hg] 109/ 70mm Hg (12/30/23 11:23 AM) Mode of Delivery (Oxygen) Room air (12/30/23 11:23 AM) Blood pressure sites Arm, left (12/30/23 11:23 AM) Weight Obtained Via Standing scale (12/30/23 11:23 AM) Social History Social History Type Response Smoking Status Former smoker; Other : quit 1992; entered on: 07/25/16 Sex Note * Emma Zavala: PERFORM, SIGN, VERIFY Event Display: Patient Education/Instruction Authored Date: [id number] [facility] *[facility] Clinical Summary Name FELI MONTEMAYOR Age 68 Years 1955 PCP Elisabeth MERCADO, Betty Chong PCP Visit Date 12/30/2023 11:08:00 Patient Instructions Ice to both shoulder for at least 20 minutes twice a day.?? Short??course of??analgesia (maximum of??one??week, call??if needed for??longer, or if ever needed more than 2 times each in any one week period):?? - Take Tylenol up to 1000 mg,??no closer than 6 hours from previous dose, up to 3 times in any 24-hour period. - Take ibuprofen up to 800 mg,??no closer than 8 hours from previous dose,??up to??4 times in any 24-hour period. Additional Instructions: Scheduled Appointments?? Future Appointments ?No Future Appointments Scheduled Follow-Up Instructions ?? With: Address: When: PT Comments: Note for checkout: Hand out hard copy of PT order and list of area PTs. You may schedule your own appointment with one of the providers from the printed list received at checkout. Diagnosis Civilian activity done for income or pay Medications: Please continue your medications until treatment is completed or stopped by your provider. Discuss any questions related to medications with your provider. Medications to Continue with No Changes These [...] tab(s) Oral every 12 hours. Next Dose: ValACYclovir (valacyclovir 1 gm oral tablet) 0.5 tab Oral twice a day. as needed for outbreaks. Refills: 1. Next Dose: Allergy Info:?? house dust mite allergen extract; Pollen Medications Given This Visit Future Orders ?No future orders Future Orders ?No future orders Vital Signs Height 178 cm Weight 85.2 kg BMI 26.89 kg/m2 Blood Pressure 109 mm Hg/70 mm Hg Temperature Pulse Rate 86 bpm Respiratory Rate 02 Sat Mode of Delivery 96 %/Room air You can now view a summary of your hospital visit from the comfort of your home through a free online portal called [facility]. [employer] is a website that allows you to securely view your medical information including discharge summary, medications and follow-up visits. ??You can alsosend a secure electronic message to your doctor???s office to request appointments, renew medications or just ask a question. You can enroll at [email or web address] or register during your next office visit. [...] primary care provider, you may find a [facility] provider by calling [facility] [employer] at [phone]. [facility], in keeping with [facility] guidance, no longer requires face masks for [...] Team Personnel Name: Betty Barber MD Position: [facility] Physician - Primary Care Member Role: PCP Address: Address: [address] [place] [address] - [place] [address]- [place] Care Team Related Persons Name: AMIE ALICIA Name: BISHNU CR Address: [address] [address]
== END 2024-04-19 09:09 | disposition home or self-care (01) ==
LOC: HO.HUSH 08:39
PROVIDERS: PCP Pediatrics; Visit Provider Urology
DX: N41.1 Chronic prostatitis (principal); M62.89 Other specified disorders of muscle
CPT/HCPCS: 99213

== ENCOUNTER → 2024-04-19 08:39 | Outpatient (BNVA) | payer MEDICARE, BC, SELFPAY | PROVIDERS: PCP Pediatrics; Visit Provider Urology ==

== ENCOUNTER 2024-06-23 10:00 | Outpatient (RCR) | payer MEDICARE, BC, SELFPAY ==
--- NOTE | 2024-04-21 11:55 | MHC.PT.EP ---
[facility] [place] Office [place] Office [place] Office [address] Ember Altamirano [address] [phone] F: [phone] F: [phone] F: [phone] F: [phone] Physical Therapy Plan of Care Date of Evaluation: 04/21/24 Date of Surgery: NA Diagnosis: Pelvic and perineal pain Assessment: Saad is a 68 year old male who is referred to PT for pelvic and perineal pain . He reports of having symptoms of pelvic pain, lower abdomen pain, and low back pain along with urinary urgency and frequency for about 2-3 years. He denies having any triggering incident. He denies having any incontinence and bowel issues. He is sexually active and occasionally has pain with erection and ejaculation and occasionally has difficulty with the same. He lives with his family and is independent with all ADLS. He presented with good lumbar and B LE ROM and strength. 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 He would benefit from skilled PT to address the aforementioned impairments and improve tolerance to functional activities. Frequency and Duration: The patient will be seen 1/week for 8 weeks. Short Term Goals: 1. Internal pelvic exam will be done in 2 weeks. 2. Pt will be able to stated at least 3 urge suppression techniques in 3 weeks. 3. Pt will drop night voiding from 4-2 during the night and 15 to 8 during the day in 4 weeks. Product Technician Goals: 1. Pt will be have 50% decrease in pelvic pain in 6 weeks, 2. Pt will be independent with all HEP for symptom management and maintenance following d/c in 8 weeks. Treatment Plan: Modalities to reduce pain, spasms and effusion. Manual therapy to restore motion and function. Therapeutic exercise to improve strength and flexibility. Neuromuscular re-education for posture and balance. Therapeutic activities to return to functional activities of daily living. Electronically signed by: Please sign and return to therapist. Thank you for your referral.
--- NOTE | 2024-06-23 10:45 | MHC.PT.DC ---
[facility] [place] Office [place] Office [place] Office [address] Ember Altamirano [address] [phone] F: [phone] F: [phone] F: [phone] F: [phone] Physical Therapy Discharge Report Diagnosis: Pelvic and perineal pain Date of Surgery: NA Date of Evaluation: 04/21/24 Date of Discharge: 06/23/24 Treatments to Date: 8 Cancellations to Date: 0 No Shows to Date: 0 Discharge Status: Achieved Goals Improved Function Independent with HEP Discharge Summary: Saad has completed 8 PT visits and has achieved all goals for him. He is independent with all HEP and is aware of all ways to manage his symptoms. He has noticed that he can avoid urinating for up to 3 hours now and does not feel uncomfortable with it. He is therefore being d/c from PT. Saad was in agreement with the plan. Electronically signed by: Sima Loyola PT DPT Please sign and return to therapist. Thank you for your referral.
== END 2024-06-23 10:46 | disposition home or self-care (01) ==
LOC: HO.PT 10:00
PROVIDERS: PCP Pediatrics; Visit Provider Urology
DX: R10.2 Pelvic and perineal pain (principal); M62.89 Other specified disorders of muscle
CPT/HCPCS: 97110; 97112; 97140; 97161

== ENCOUNTER 2024-09-19 13:33 | Outpatient (REF) | payer MEDICARE, BC, SELFPAY ==
[2024-09-19 16:40] LABS: Appearance Urine Clear; Color Urine Yellow; Glucose Urine UA Negative (Negative); Leukocyte Esterase Urine Negative (Negative); Nitrite Urine Negative (Negative); PH 5.5 (5.0-9.0); Specific Gravity - Urine 1.015 (1.005-1.025); Urine Blood Negative (Negative); Urine Ketones Negative (Negative); Urine Protein Negative (Neg-Trace)
[2024-09-19 16:43] LABS: Bacteria Urine None Seen (None Seen); Hyaline Casts Urine 0-2 /LPF (0-2); RBC Urine 0-2 /HPF (0-2); Squamous Epithelial Cell Urine 0-2 /HPF (0-2); WBC Urine 0-5 /HPF (0-5)
== END 2024-09-19 13:34 | disposition home or self-care (01) ==
LOC: HO.WFDLDS 13:33
PROVIDERS: Visit Provider Urology
DX: R35.1 Nocturia (principal); R39.9 Unspecified symptoms and signs involving the genitourinary system; N40.0 Benign prostatic hyperplasia without lower urinary tract symptoms
CPT/HCPCS: 81001; 87086

== ENCOUNTER 2024-12-06 10:52 | Outpatient (REF) | payer MEDICARE, BC, SELFPAY ==
[2024-12-06 14:50] LABS: Prostate Specific Antigen 4.08 ng/mL (<0.05-4.0)
== END 2024-12-06 10:53 | disposition home or self-care (01) ==
LOC: HO.WFDLDS 10:52
PROVIDERS: Visit Provider Urology
DX: N41.1 Chronic prostatitis (principal); Z12.5 Encounter for screening for malignant neoplasm of prostate
CPT/HCPCS: 36415; 84153

== ENCOUNTER 2024-12-13 09:42 | Outpatient (AMB) | payer MEDICARE, BC, SELFPAY ==
--- NOTE | 2024-12-13 09:50 | MHC.OFFVIS ---
Intake Visit Reasons: Urinary Incontinence/PSA Intake Note: Patient is present for URINARY INCONTINENCE/PSA Urology Medication:TERAZOSIN,FINASTERIDE,TRIMETHOPRIM Antibiotic Allergy:NONE Blood Thinner:NONE TODAY'S PVR: 16ML[employer]S Financial Services Officer Required: No Allergies No Known Allergies Allergy (Verified 12/13/24 09:51) HPI Comments Details: Junito is a pleasant male. He is a patient of Dr. Barber. He seen for the following urologic conditions - lower urinary tract symptoms - urinary tract infection - pelvic floor dysfunction - prostatitis Six-month follow-up Did very well with pelvic floor physical therapy. Rise in PSA consistent with coming off finasteride. Six-month follow-up repeat PSA Lower urinary tract symptoms Initial symptom presentation weakness of stream, nocturi Prior treatment for prostatitis Reports compliance with finasteride and takes terazosin on a p.r.n. basis Is adverse to taking medications PSA 03/22 2.7, 04/23 2.1, 12/23 4.1 Retroperitoneal ultrasound left kidney Bosniak 1 cyst, prostate 50 g PFSH Medical History Urinary frequency Seasonal allergies Hyperlipidemia Herpes genitalia Anxiety Family History Mother Breast cancer Father Colon cancer Review of Systems Const Denies chills and Denies fever(s) Card Reports no additional complaints and Denies syncope Resp Denies cough GI Denies abdominal pain and Denies heartburn Reports as per HPI and Denies change in libido Neuro Denies syncope Psych Denies change in libido Endo Denies change in libido Physical Exam Const General: cooperative, healthy appearing, comfortable and no acute distress Orientation/consciousness: patient oriented x3 HEENT Face and sinus: Yes normal facial exam Mouth: moist mucous membranes Neck Neck: Yes normal visual inspection, Yes full ROM and Yes trachea midline Chest Chest palpation & inspection: normal inspection of the chest Resp Effort & Inspection: normal respiratory effort, able to speak in complete sentences and no respiratory distress GI Inspection: Yes normal to inspection Back/Spine/Pelvis Cervical Spine: normal cervical lordosis Thoracic/Lumbar Spine: thoracic and lumbar spine normal to inspection Skin General skin exam: no rashes or lesions noted Neuro General: patient oriented x3, gait normal, tone normal and moves all extremities Extrem General: Yes normal to inspection and Yes capillary refill normal Office Procedures Post Void Residual Post Residual Void Post Void Residual (PVR): 16 22710-[place] Void Residual by ultrasound Assessment & Plan Assessment & Plan (1) BPH (benign prostatic hyperplasia): Code(s): N40.0 - Benign prostatic hyperplasia without lower urinary tract symptoms Category: Medical (2) Prostatitis: Code(s): N41.9 - Inflammatory disease of prostate, unspecified Category: Medical Qualifiers: Prostatitis type: chronic Qualified Code(s): N41.1 - Chronic prostatitis Plan Six-month follow-up Orders: Orders AMB Urinalysis Automated Today Z13.9 - Encounter for screening, unspecified PSA,Total (Free>4and<10) 6 Months R97.20 - Elevated prostate specific antigen [PSA] Medications: Discontinued terazosin Discontinued Reason: Patient Completed Course 5 mg PO BEDTIME 90 days 90 caps 1RF N41.1 - Chronic prostatitis finasteride Discontinued Reason: Patient Completed Course 5 mg PO BEDTIME 90 days 90 tabs 1RF N41.1 - Chronic prostatitis prednisone Discontinued Reason: Patient Completed Course 20 mg PO DAILY 5 days 5 tabs 0RF Patient Instructions: This note is constructed using voice recognition software. While every effort has been made to ensure accuracy river crossing supervisor errors may have been included. Imaging studies, laboratory and physical exam results were discussed and reviewed in detail. No major barriers to patient understanding were identified. An opportunity to ask questions regarding the treatment plan was provided. All questions were answered. The patient expressed understanding and agreement with the above treatment plan. The patient is aware they should contact our office by phone for worsening of their current condition or the appearance of new urologic symptoms. Compliance is encouraged with any medications and followup testing that is ordered. It is a privilege to participate in the urologic care of your patient. If you have any questions or concerns regarding treatment for the above conditions, or other urologic issues, please do not hesitate to contact me. The office telephone contact is [phone]. Sincerely, Dr Manpreet Ramos MD, [facility] - Urology Compassionate Specialist Care for the Genitourinary System Coding Level of Care Code Est Pt Level 3 (34712) Diagnoses BPH (benign prostatic hyperplasia) N40.0 Chronic prostatitis N41.1 Prostatitis type: chronic CPT Codes Post Residual Void - PVR CPT Code: 34552-Mtqg Void Residual by ultrasound ([id number])
== END 2024-12-13 10:50 | disposition home or self-care (01) ==
PROVIDERS: PCP Pediatrics; Visit Provider Urology
DX: N40.0 Benign prostatic hyperplasia without lower urinary tract symptoms (principal); N41.1 Chronic prostatitis; Z13.9 Encounter for screening, unspecified
CPT/HCPCS: 99213

== ENCOUNTER → 2024-12-13 09:42 | Outpatient (BNVA) | payer MEDICARE, BC, SELFPAY | PROVIDERS: PCP Pediatrics; Visit Provider Urology | DX: N40.0 Benign prostatic hyperplasia without lower urinary tract symptoms (principal); N41.1 Chronic prostatitis | CPT/HCPCS: 51798; 81003; 99212 ==

== ENCOUNTER 2025-06-02 07:32 | Outpatient (REF) | payer MEDICARE, BC, SELFPAY ==
[2025-06-02 10:57] LABS: PSA,Total (Free>4and<10) 5.08 ng/mL (0.00-4.00)
[2025-06-05 13:39] LABS: Free Prostate Spec Ag 0.7 ng/mL; Percent Free Prostate Spec Ag 14 % (calc) (>25)
== END 2025-06-02 07:33 | disposition home or self-care (01) ==
LOC: HO.10HDL 07:32
PROVIDERS: Visit Provider Urology
DX: R97.20 Elevated prostate specific antigen [PSA] (principal); Z12.5 Encounter for screening for malignant neoplasm of prostate
CPT/HCPCS: 36415; 84153; 84154

== ENCOUNTER 2025-06-15 09:43 | Outpatient (AMB) | payer MEDICARE, BC, SELFPAY ==
--- NOTE | 2025-06-15 10:09 | A.OFFVIS_ITS ---
Intake Visit Reasons: 6m/PSA Intake Note: patient presents today for: 6mo/PSA urology medications: doxycyline blood thinners: none labs done 06/02/25: t-psa 5.08 today's PVR: 0mls Nurseryperson Required: No Accompanied by: Self / Same As Patient Allergies No Known Allergies Allergy (Verified 06/15/25 10:10) HPI Comments Details: Junito is a pleasant male. He is a patient of Dr. Barber. He seen for the following urologic conditions - lower urinary tract symptoms - urinary tract infection - pelvic floor dysfunction - prostatitis Six-month follow-up Did very well with pelvic floor physical therapy. PSA continues to rise Lower urinary tract symptoms Initial symptom presentation weakness of stream, nocturi Prior treatment for prostatitis Reports compliance with finasteride and takes terazosin on a p.r.n. basis Is adverse to taking medications PSA 03/22 2.7, 04/23 2.1, 12/23 4.1, 06/24 5.1 Retroperitoneal ultrasound left kidney Bosniak 1 cyst, prostate 50 g PFSH Medical History Urinary frequency Seasonal allergies Hyperlipidemia Herpes genitalia Anxiety Family History Mother Breast cancer Father Colon cancer Office Procedures Post Void Residual Post Residual Void Post Void Residual (PVR): 0 [id number] Void Residual by ultrasound Results AMB Urinalysis, Automated UA Leukoctes 0 Sandra/uL Last Edit by NANCY Rodriguez on 06/15/25 10:12 UA Nitrite Last Edit by NANCY Rodriguez on 06/15/25 10:12 UA Urobilinogen 0.2 mg/dL Last Edit by NANCY Rodriguez on 06/15/25 10:1 2 UA Protein 0 mg/dL Last Edit by NANCY Rodriguez on 06/15/25 10:12 UA pH 5.5 Last Edit by NANCY Rodriguez on 06/15/25 10:12 UA Blood 0 Rashaad/uL Last Edit by NANCY Rodriguez on 06/15/25 10:12 UA Specific [place] 1.025 Last Edit by NANCY Rodriguez on 06/15/25 10: 12 UA Ketone Last Edit by NANCY Rodriguez on 06/15/25 10:12 UA Bilirubin 0 mg/dL Last Edit by NANCY Rodriguez on 06/15/25 10:12 UA Glucose 0 mg/dL Last Edit by NANCY Rodriguez on 06/15/25 10:12 Results Reviewed Results Reviewed: Laboratory Last Values Urine pH (Auto) 5.5 06/15/25 10:12 Specific [place] (Auto) 1.025 06/15/25 10:12 Urine Protein (Auto) 0 mg/dL 06/15/25 10:12 Glucose (UA)(Auto) 0 mg/dL 06/15/25 10:12 Urine Blood (Auto) 0 Rashaad/uL 06/15/25 10:12 Urine Bilirubin (Auto) 0 mg/dL 06/15/25 10:12 Urine Urobilinogen (Auto) 0.2 mg/dL 06/15/25 10:12 Leukocyte Esterase (Auto) 0 Sandra/uL 06/15/25 10:12 Assessment & Plan Assessment & Plan Orders: Orders Prostate Specific Antigen 6 Months R97.20 - Elevated prostate specific antigen [PSA] AMB Post Void Residual by ultrasound Today N40.0 - Benign prostatic hyperplasia without lower urinary tract symptoms AMB Urinalysis Automated Today Z13.9 - Encounter for screening, unspecified Coding CPT Codes Post Residual Void - PVR CPT Code: 16338-[place] Void Residual by ultrasound ([id number])
--- OUTSIDE RECORDS SUMMARY | 2025-06-15 11:17 | XMS_ITS | Clinical Summary ---
Author Organization [facility] Address [address] [facility] [address] [place] [id number] Phone Care Team Providers Care Computer Education Teacher Name Role Phone Betty Ervin MD Primary Care Provid er Allergies No known active allergies Medications ibuprofen (ADVIL,MOTRIN) 200 MG tabletIndicatio ns:pain Take 200 mg by mouth as needed for pain (specific location in comments). Indications: Pain Active finasteride (PROSCAR) 5 mg tablet Take 5 mg by mouth daily. Active Medication-Free Text Take by mouth daily. pterygium Active Medication-Free Text Take by mouth daily. Beta-sitoslero l Active cholecalciferol , vitamin D3, (VITAMIN D3 ORAL) Take 1 capsule by mouth daily. Active ZINC ORAL Take 1 tablet by mouth daily. Active Social History Tobacco Use Types Packs/Day Years Used Date Smoking Tobacco: Former Cigarettes Q uit: 1992 Smokeless Tobacco: Never Tobacco Cessation:Counseling Given: Not Answered Alcohol Use Standard Drinks/Week Comments Yes 0 (1 standard drink = 0.6 oz pur e alcohol) rarely Education Answer Date Recorded Are you interested in more education? Not on carlos e 12/26/2022 Are you concerned about learning? Not on file 12/26/2022 No 12/26/2022 No 12/26/2022 Digital Access Answer Date Recorded No 01/24/2023 No 01/24/2023 Reliable internet access at home? Not on file 01/24/2023 Device with a working camera? Not on file Intimate Partner Violence Answer Date R ecorded Are you denied basic needs s uch as food, clothing, or medical care? No 02/13/2023 In the past 12 months have y ou been in a relationship with a person who hurts, threatens, or tries to control you? No 02/13/2023 Are you denied basic needs s uch as food, clothing, or medical care? No 02/13/2023 In the past 12 months have y ou been in a relationship with a person who hurts, threatens, or tries to control you? No 02/13/2023 Sex and Gender Information Value Date Recorded Sex Assigned at Not on file Legal Sex Male 9:52 PM EDT Gender Identity Not on file Sexual Orientation Not on file Last Filed Vital Signs Vital Sign Reading Time Taken Comments Blood Pressure 123/73 02/17/2023 8:20 AM EDT Pulse 63 02/17/2023 8:20 AM EDT Temperature 36 C (96.8 F) 02/17/2023 7:17 AM EDT Respiratory Rate 12 02/17/2023 8:20 AM EDT Oxygen Saturation 97% 02/17/2023 8:20 AM EDT Inhaled Oxygen Concentration - - Weight 81.6 kg (180 lb) 02/13/2023 12:18 PM EDT Height 177.8 cm (5' 10 ) 02/13/2023 12:18 PM EDT Body Mass Index 25.83 02/13/2023 12:18 PM EDT Plan of Treatment Health Maintenance Due Date Last Done Comments LIPID PANEL 1957 DEPRESSION SCREENING 1969 SMOKING Hx and SMOKELESS TOBACCO SCREENING 1970 HEPATITIS C SCREENING 11/30/1975 SCREENING FOR DIABETES 1992 COLOGUARD 2002 FIT TEST 2002 FOBT 2002 SIGMOIDOSCOPY 2002 VIRTUAL COLONOSCOPY 2002 PNEUMOCOCCAL VACCINES (50+ years) (1 of 1 - PCV) 11/30/2007 ZOSTER VACCINES (2 of 2) 10/10/2018 08/15/2018 ABDOMINAL AORTIC ANEURYSM (AAA) SCREENING 2022 INFLUENZA VACCINE (#1) 2025 2, 05/28/2021, 06/13/2019, Additional history exists COVID-19 VACCINE (3 - season) 2025 12/23/2020, 11/25/2020 Adult Td,Tdap Booster 07/25/2026 07/25/2016 RSV VACCINE (1 - 1-dose 75+ series) 2032 COLONOSCOPY 02/17/2033 02/17/2023, 12/08/2017 COLORECTAL CANCER SCREENING 02/17/2033 HEPATITIS A VACCINES Aged Out No long er eligible based on patient's age to complete this topic HIB VACCINES Aged Out No longer eligi ble based on patient's age to complete this topic MENINGOCOCCAL VACCINES (ACWY) Aged Out No longer eligible based on patient's age to complete this topic MENINGOCOCCAL VACCINES (B) Aged Out N o longer eligible based on patient's age to complete this topic Medical Devices Not on file Procedures Procedure Name Priority Date/Time Associated Diagnosis Comments ENDOSCOPY, COLON 02/17/2023 7:17 AM EDT from Last 3 Months or Most Recently Relevant to Health Maintenance Results * ENDOSCOPY, COLON (02/17/2023 7:17 AM EDT) Narrative Transcriptions Martha Mims MD - 02/17/2023 7:17 AM EDT [facility] Patient Name: Feli Reeves Attending MD:: MARTHA MIMS MD, Procedure Date: 02/17/2023 7:17 AM Date of : 1955 Age: 67 Admit Type: Outpatient Gender: Male Room: [place] [address] Referring MD: BETTY ERVIN MD Exam Type: Colonoscopy Indications: Screening in patient at increased risk: Colorectal cancer in father 60 or older, Last colonoscopy:November 2017 Medications: Monitored Anesthesia Care Procedure: Informed consent was obtained from the patientafter discussion of the indications, limitations, alternatives, benefits, and risks of the procedure. Risks specifically discussed include but are not limited to medication reactions, missed lesions, bleeding, perforation, or the need for emergent surgery. Throughout the procedure, the patient's blood pressure, pulse, end-tidal CO2, and oxygensaturations were monitored continuously. The Olympus pediatric variable colonoscopePCF-[id number] #1 was introduced through the anus and advanced tothe cecum, identified by the appendiceal orifice, ileocecal valve and palpation. The colonoscopy was performed without difficulty. The patient tolerated the procedure well. The quality of the bowel preparation was adequate to identify polyps. The ileocecal valve, appendiceal orifice, and rectumwere photographed. Complications: No immediate complications. Estimated blood loss: Minimal. Findings: The perianal and digital rectal examinations were normal. Pertinent negatives include normalsphincter tone. A 6 mm polyp was found in the descending colon at35 cm proximal to the anus. The polyp was sessile. The polyp was removed with a cold snare. Resection and retrieval were complete. Estimated blood loss was minimal. A 5 mm polyp was found at 80 cm proximal to theanus. The polyp was sessile. The polyp was removed with a cold snare. Resection and retrieval were complete. Estimated blood loss was minimal. Retroflexion in the right colon was performed. A few small-mouthed diverticula were found in the sigmoid colon. The exam was otherwise without abnormality ondirect and retroflexion views. Impression: - One 6 mm polyp in the descending colon at 35 cm proximal to the anus, removed with a cold snare. Resected and retrieved. - One 5 mm polyp at 80 cm proximal to the anus, removed with a cold snare. Resected andretrieved. - Diverticulosis in the sigmoid colon. - The examination was otherwise normal on directand retroflexion views. Recommendation: - I will send results of your biopsy to you andyour referring physician or provider. If you do notreceive notification within 3 weeks, please call ouroffice. - Repeat colonoscopy in 5 years for surveillancebased on pathology results. MARTHA MIMS MD 02/17/2023 8:06:50 AM This report has been signed electronically. Number of Addenda: 0 Note Initiated On: 02/17/2023 7:17 AM Procedure Code(s): --- Professional --- 03194, Colonoscopy, flexible; with removal of tumor(s), polyp(s), or other lesion(s) by snare technique --- Technical --- 28551, Colonoscopy, flexible; with removal of tumor(s), polyp(s), or other lesion(s) by snare technique Diagnosis Code(s): --- Professional --- Z80.0, Family history of malignant neoplasm of digestive organs D12.4, Benign neoplasm of descending colon K57.30, Diverticulosis of large intestine without perforation or abscess without bleeding --- Technical --- Z80.0, Family history of malignant neoplasm of digestive organs D12.4, Benign neoplasm of descending colon K57.30, Diverticulosis of large intestine without perforation or abscess without bleeding CPT copyright 2021 [employer]. All rights reserved. The codes documented in this report are preliminary and upon contractor general building reviewmay be revised to meet current compliance requirements. Procedure Date: 02/17/2023 7:17:[address] [place] [id number] Betty Ervin MD GI PROCEDURE ORDERAB LES Final Result from Last 3 Months or Most Recently Relevant to Health Maintenance Insurance MEDICARE PART A & B MEDICARE PART A & B MEDICARE PART A & B MEDICARE PART A & B [facility] MEDICARE PART A & B [facility] MEDICARE PART A & B [employer] Care Teams Computer Education Teacher Relationship Specialty Start Date End Date Betty Ervin MD [address] [address] PCP - General Internal Medicine 02/04/23 Additional Source Comments The information contained in this document represents components of the legal health record. It is not the complete legal health record.[facility]
--- OUTSIDE RECORDS SUMMARY | 2025-06-15 11:17 | XMS_ITS | Data Portability ---
Author Organization [facility], [employer] Address [address] [place] [address] Care Team Providers Care Electrical Superintendent Name Role Phone JANNY HANSEN Dry Folder Cloth Assessment No assessment recorded. Plan of Treatment Reminders Order Date Submit Date Provider Last Modified By Organization Details Last Modified Time Details Appointments PT INITIAL EVAL 2024 09:30A M Ester Sanchez, PT Not available Not available Not available PT FOLLOW-UP 2024 10:30A M Ester Sanchez, PT Not available Not available Not available PT FOLLOW-UP 2024 09:00A M Ester Sanchez, PT Not available Not available Not available PT FOLLOW-UP 2024 09:00A M Ester Sanchez, PT Not available Not available Not available POST OP 15 2024 09:00A M Bro Andrade MD Not available Not available Not available PT FOLLOW-UP 2024 09:00A M Ester Sanchez, PT Not available Not available Not available PT FOLLOW-UP 2024 09:30A M Ester Sanchez, PT Not available Not available Not available PT FOLLOW-UP 2024 09:30A M Burgos Jazmine, PALLIATIVE MEDICINE PHYSICIAN Not available Not available Not available PT FOLLOW-UP 2024 09:00A M Burgos Jazmine, PALLIATIVE MEDICINE PHYSICIAN Not available Not available Not available PT FOLLOW-UP 2024 09:00A M Burgos Jazmine, PALLIATIVE MEDICINE PHYSICIAN Not available Not available Not available PT FOLLOW-UP 2024 09:00A M Burgos Jazmine, PALLIATIVE MEDICINE PHYSICIAN Not available Not available Not available PT FOLLOW-UP 2024 09:00A Rishabh Lucero, PALLIATIVE MEDICINE PHYSICIAN Not available Not available Not available PT FOLLOW-UP 2024 09:00A Rishabh Sanchez, PT Not available Not available Not available PT FOLLOW-UP 2024 09:00A Rishabh Sanchez, PT Not available Not available Not available PT FOLLOW-UP 2024 09:30A Rishabh Sanchez, PT Not available Not available Not available PT FOLLOW-UP 2024 09:30A Rishabh Lucero, PALLIATIVE MEDICINE PHYSICIAN Not available Not available Not available PT FOLLOW-UP 2025 09:00A Rishabh Sanchez, PT Not available Not available Not available Lab None recorded. Referral None recorded. Procedures None recorded. Surgeries None recorded. Imaging MRI, shoulder, w/o contrast - left shoulder partial RCT progressi on 2024 025 [facility] ([facility]), [address], [place], [address], 04/04/2025 15:20:34 Medication Orders None recorded. Patient TargetsNo targets recorded. Patient InstructionsNo instructions recorded. Reason for Referral None Reported. Results Created Date Observation Date Name Description Value Unit Range Abnormal Flag Note LastModifiedBy Organization Detail LastModifiedTime 03/22/20 24 03/22/2024 XR, shoul екатерина, 2 or more view [email or web address] ?Encry pted=s hAaTro YD8dLq bEUv6g %2BXZw aYqtaq 0bqfl% 2Fg9IQ a4ajBk vP9nXo QUaueC m3YtLR FvZlgJ JJ8mAn HZtai3 9o9663 AC0KpY 3SEWKb eUC8mr 84%3D INTERFACE [facility] [address], [place], [address], 03/22/2024 11:00:02 03/22/20 24 03/22/2024 XR, shoul екатерина, 2 or more view [email or web address] ?Encry pted=s hAaTro YD8dLq bEUv6g %2BXZw aYqtaq 0bqfl% 2Fg9IQ a4ajBk vP9nXo QUaueC m3YtLR FvZlgJ JJ8mAn HZtai3 6k5286 AC0KpY 3SEWKb eUC8mr 84%3D INTERFACE [facility] [address], [place], [address], 03/22/2024 11:00:05 04/04/20 24 04/02/2024 MRI, shoul екатерина, w/[facility] Access ion Number : [id number] Name: Wilfrido pino, Saad Medica l Record Number : [id number] Date of : 1955 Date of Exam: 2023 Referr ing Physic margarita: Bro Andrade [address] [place] [address] Exam: MR Should er (C-) CPT 18271 - Left Room Descri ption: [facility] 3.0T Clinic al Histor y: Pain in the left should er, questi on rotato r cuff tear. The patien t report s interm ittent left should er pain which varies in severi ty for 5 months . Histor y of an injury pickin g up a heavy box on 024, limite d range of motion . Techni que: MRI of the left should er was perfor med withou t intrav enous contra st. Compar chiki: None. Findin gs: Rotato r cuff: There is hetero geneou s signal mild thicke bryanna of the supras pinatu s insert ion, sugges ting tendin opathy . Globul ar T1 and T2 hypoin tense signal is seen in the infras pinatu s footpr int, compat ible with calcif ic tendin opathy . The teres minor and subsca pulari s tendon s are intact . There is normal muscle bulk. Glenoi d labrum and biceps tendon : There is diffus e degene ration in the labrum with appare nt superi mposed tear of the account support rep ior superi or and inferi or labrum with small para labral cyst adjace nt to the levon inferi or labrum . The biceps tendon is in the groove . AC joint: There is mild bony prolif eratio n and small foci of subcho ndral marrow edema the acromi oclavi cular joint. Articu lar cartil age: The articu lar cartil age is of normal thickn ess. No focal defect s are seen. Bone: The bone and bone marrow are normal . Impres daniel: 1. Calcif ic tendin opathy of infras pinatu s attach ment and tendin opathy of the supras pinatu s attach ment. 2. Degene ration in the labrum with superi mposed tearin g of the inferi or and account support rep ior superi or labrum . Small para labral cyst adjace nt to the levon inferi or labrum . 3. Mild acromi oclavi cular degene rative change . Electr onical ly Signed By: Alyson Celaya ra, MD [email or web address] [facility] ([facility]) [address] [place], [address], 04/04/2024 12:44:14 04/04/20 25 04/02/2025 MRI, brigitte willams, w/o contr ast [facility] Access ion Number : [id number] J[address] t Name: Wilfrido pino, Saad Recordanta claus Record Number : [id number] Date of : 1955 Date of Exam: 2024 Referr ing Physic margarita: Bro Andrade [address] [place] [address] Exam: MR Should er (C-) CPT 20947 - Left Room Descri ption: [facility] 3T Clinic al Histor y: Pain in the left should er, questi on progre ssion of partia l rotato r cuff tear.. Techni que: MRI of the left should er was perfor med withou t intrav enous contra st. Compar chiki: Left should er MRI dated 04/02/20 24. Findin gs: Rotato r cuff: Linear intras ubstan ce partia l tear at the infras pinatu s footpr int is seen in simila r locati on to the previo usly noted focus of calcif ic tendin opathy (image 22 of series 6 and image 18 of series 3). There is supras pinatu s tendin opathy . The teres minor and subsca pulari s tendon s are intact . There is normal muscle bulk. Glenoi d labrum and biceps tendon : There is thicke bryanan and interm ediate signal of the intra- articu lar biceps , compat ible with tendin opathy . Diffus e degene ration in the labrum with superi mposed tears again seen of the inferi or labrum with small adjace nt para labral cysts by the levon inferi or and account support rep ior inferi or labrum . AC joint: There is modera te acromi oclavi cular degene rative change of bony prolif eratio n and subcho ndral marrow edema like signal . Articu lar cartil age and bone: Mild chondr al thinni ng is seen in the supero medial aspect of the kaye l head and account support rep iorly in the glenoi d. Mild subcho ndral marrow edema like signal is seen in the account support rep ior mid glenoi d. Impres daniel: 1. Linear intras ubstan ce partia l tear in the infras pinatu s footpr int simila r locati on to the previo usly seen focus of presum ed calcif ic tendin opathy . 2. Supras pinatu s tendin opathy . 3. Tendin opathy of the intra- articu lar biceps with unchan ged appear ance of degene rative appear ing labral tear with small para labral cyst adjace nt to the levon inferi or and account support rep ior inferi or labrum . 4. Modera te acromi oclavi cular and mild glenoh umeral degene rative change . Electr onical ly Signed By: Alyson Celaya ra, MD [email or web address] [facility] ([facility]) [address], [place], [address], 04/04/2025 16:18:32 Result Notes Documentation Provider Name and Address Organization Details Recorded Time Mri, Shoulder, W/o Contrast : [facility] Accession Number: [id number] Patient Name: Saad Reeves Date of : 1955 Date of Exam: 04-02-2025 Referring Physician: Bro Andrade [address] [place] [address] Exam: MR Shoulder (C-) CPT 10444 - Left Room Description: [facility] 3T Clinical History: Pain in the left shoulder, question progression of partial rotator cuff tear.. Technique: MRI of the left shoulder was performed without intravenous contrast. Comparison: Left shoulder MRI dated 04/02/2024. Findings: Rotator cuff: Linear intrasubstance partial tear at the infraspinatus footprint is seen in similar location to the previously noted focus of calcific tendinopathy (image 22 of series 6 and image 18 of series 3). There is supraspinatus tendinopathy. The teres minor and subscapularis tendons are intact. There is normal muscle bulk. Glenoid labrum and biceps tendon: There is thickening and intermediate signal of the intra-articular biceps, compatible with tendinopathy. Diffuse degeneration in the labrum with superimposed tears again seen of the inferior labrum with small adjacent para labral cysts by the anteroinferior and posterior inferior labrum. AC joint: There is moderate acromioclavicular degenerative change of bony proliferation and subchondral marrow edema like signal. Articular cartilage and bone: Mild chondral thinning is seen in the superomedial aspect of the humeral head and posteriorly in the glenoid. Mild subchondral marrow edema like signal is seen in the posterior mid glenoid. Impression: 1. Linear intrasubstance partial tear in the infraspinatus footprint similar location to the previously seen focus of presumed calcific tendinopathy. 2. Supraspinatus tendinopathy. 3. Tendinopathy of the intra-articular biceps with unchanged appearance of degenerative appearing labral tear with small para labral cyst adjacent to the anteroinferior and posterior inferior labrum. 4. Moderate acromioclavicular and mild glenohumeral degenerative change. Electronically Signed By: Alyson Andrade MD [address] [place] [address], [phone], [facility] 04/04/2025 16:18:32 Problems Name Problem SNOMED Code Status Onset Date Resolution Date Notes Provider Name and Address Organization Details Recorded Time Nontraumati c partial rupture of left rotator cuff 3986014730842 103 Active 2024 Bro Andrade MD [address], [place], [address], [facility] 5 19:00:09 Postoperati ve pain 887472923 Active 2024 Bro Andrade MD [address], [place], [address], [facility] 5 12:10:25 Traumatic left rotator cuff tear Active 2024 Ifeanyi sears PA-C [address], [place], [address], [facility] 5 10:38:25 Problem Notes None recorded. Procedures Surgical History Date Name Laterality Status Provider Name and Address Organization Details Recorded Time 4 Sports Shoulder completed Bro Andrade MD [address], [place], [address], [facility] 04/19/2024 12:45:54 Imaging Results None recorded. Procedure Notes None recorded. Medical Equipment None Reported. Allergies No known drug allergies Medications Name Sig Start Date Stop Date Status Note LastModified by Organization Details LastModified Time terazosin 5 mg capsule TAKE 1 CAPSULE BY MOUTH AT BEDTIME active Not Available Not Available No t Available valacyclovi r 1 gram tablet TAKE 1/2 TABLET BY MOUTH TWICE DAILY NEEDED FOR OUTBREAK active Not Available Not Available No t Available meloxicam 15 mg tablet TAKE 1 TABLET BY MOUTH DAILY active Not Available Not Available No t Available prednisone 20 mg tablet TAKE 2 TABLETS BY MOUTH DAILY FOR 5 DAYS 03/21 completed Not Available Not Available Not Available trimethopri m 100 mg tablet TAKE 1 TABLET BY MOUTH DAILY 05/31 completed Not Available Not Available Not Available sulfamethox azole 800 mg-trimetho prim 160 mg tablet TAKE 1 TABLET BY MOUTH TWICE DAILY FOR 14 DAYS 03/18 completed Not Available Not Available Not Available doxycycline monohydrate 100 mg tablet active Not Available Not Available Not Available omeprazole 20 mg capsule,del ayed release TAKE 1 CAPSULE BY MOUTH DAILY FOR 7 DAYS 03/21 completed Not Available Not Available Not Available doxycycline hyclate 100 mg tablet TAKE 1 TABLET BY MOUTH TWICE DAILY FOR 14 DAYS 03/21 completed Not Available Not Available Not Available finasteride 5 mg tablet TAKE 1 TABLET BY MOUTH AT BEDTIME active Not Available Not Available No t Available amoxicillin 875 mg-potassiu m clavulanate 125 mg tablet TAKE 1 TABLET BY MOUTH EVERY 12 HOURS FOR 7 DAYS 03/18 completed Not Available Not Available Not Available oxycodone 5 mg tablet TAKE 1 TABLET BY MOUTH EVERY 6 HOURS NEEDED FOR SEVERE POST OPERATIVE PAIN active Not Available Not Available No t Available Vitals Date Recorded Body height Body mass index (BMI) Body weight Provider Name and Address Organization Details Last Updated DateTime 03/21/2025 180.34 cm 25.5 kg/m2 84707.4 g Valarie evans [facility] 03/21/2025 08:15:01 Date Recorded Body height Body mass index (BMI) Body weight Provider Name and Address Organization Details Last Updated DateTime 04/18/2025 180.34 cm 25.5 kg/m2 64240.4 g Valarie evans [facility] 04/18/2025 11:21:31 Date Recorded Body height Body mass index (BMI) Body weight Provider Name and Address Organization Details Last Updated DateTime 04/19/2024 180.34 cm 25.5 kg/m2 13564.4 g Valarie evans [facility] 04/19/2024 09:25:32 Date Recorded Body height Body mass index (BMI) Body weight Provider Name and Address Organization Details Last Updated DateTime 05/31/2024 180.34 cm 25.5 kg/m2 50008.4 g Valarie evans [facility] 05/31/2024 09:52:18 Date Recorded Body height Body mass index (BMI) Body weight Provider Name and Address Organization Details Last Updated DateTime 06/06/2025 180.34 cm 25.5 kg/m2 17797.4 g Kathy Lopez [facility] 06/06/2025 09:21:47 Social History None recorded. Functional Status None recorded. Mental Status None recorded. Family History Nothing Reported. Medical History No medical history recorded. Past Encounters Encounter ID Performer Location Encounter Start Date Encounter Closed Date Diagnosis/Indication Diagnosis SNOMED-CT Code Diagnosis ICD10 Code Diagnosis IMO Codes Diagnosis Note [id number] [facility] [address] [place] [address] 03/22/2024 10:33:42 04/16/2024 08:05:31 Pain of left shoulder joint [id number] 4803133 M25.981 [id number] Bro nAdrade MD [facility] on Clinical [address] [place] [address] 04/19/2024 09:18:27 05/12/2024 19:59:32 Calcific tendinitis of left shoulder 4616154889 89895 M75.32 [id number] Bro Andrade MD [facility] on Clinical [address] [place] [address] 05/31/2024 09:42:25 06/20/2024 13:59:45 Osteoarthritis of joint of left shoulder region 6721887258 93867 M19.530 [id number] [facility] [address] [place] [address] 03/21/2025 07:59:56 04/03/2025 13:31:50 Pain of left shoulder joint 9687453488 6232307 M25.512 [id number] Nontraumat ic partial rupture of left rotator cuff 5980490080 650990 M75.112 [id number] MD [facility] [address] [place] [address] 04/18/2025 11:12:21 05/03/2025 07:40:53 Impingement syndrome of left shoulder region 6734657151 00367 M75.42 [id number] TOMY Naik [address] [facility] [place] [address] 06/06/2025 08:55:02 06/06/2025 10:38:38 Traumatic left rotator cuff tear 9492932501 9579816 S46.012D [id number] Health Concerns Section Related Observation LastModified by Organization Detyunior ls LastModified Time None Recorded Concern Status LastModified by Organization Details LastModified Time None Recorded Advance Directives Directive None Recorded Payers Insurance Date Sequence Insurance Name Policy Number Policy Jaquez Covered Member ID Jaquez Member ID Guarantor Name 05/03/2025 [employer] Miguelina Reeves Notes Date Note Type Note Provider Name and Address Organization Details Recorded Time 04/19/2024 text/html Chief complaint: Left shoulder injury Interval history: Patient here today to review MRI left shoulder. He reports his pain 3 out of 10 and varies in intensity based on activity. He continues to work without restrictions.To recap last visit on April 19, 2024 patient is a 68-year-old male here today for Worker's Compensation related left shoulder injury. 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 He continues to have shoulder pain, weakness, limited function after this injury. He reports his pain varies in intensity and is worse with overhead motion and lifting. He rates his pain level 5 out of 10 today. He has done 4 weeks of physical therapy and continues to do home exercises without any noticeable improvement. He denies any prior shoulder injuries or limitations. 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 SIDE: LeftGENERAL: Appears comfortable.INSPECTIO N: No muscle atrophy. Normal deltoid contour. No shoulder rounding/scapular protractionPALPATION: No AC joint tenderness. No Bicipital Groove tendernessNECK EXAM: Full flexion and extension. Negative Spurling s UPPER EXTREMITY NEUROVASCULAR EXAM: No motor or sensory deficitsACTIVE/PASSIV E ROM: Forward elevation 180 degrees, External rotation 70 degrees, Internal rotation T12. Mild pain/irritability with midrange motion. Positive crepitus with range of motion.ROTATOR CUFF TESTING: Supraspinatus strength testin/5. Infraspinatus strength testin/5. Subscapularis Strength Testin/5. He reports pain with rotator cuff strength testNEER: PositiveHAWKINS: PositiveOBRIEN: Positive, 4/5 strength cross-body adductionANTERIOR/POS TERIOR LOAD AND SHIFT: NegativeSULCUS: Negative CONTRALATERAL SIDE:ROM full, 5/5 strength, No atrophy. No evidence of instability of the shoulder. Negative impingement signs. Negative AC joint tenderness. Negative Speed's, Negative O'Briens, Negative Lina. X-rays 4 views ordered, obtained, and personally reviewed today AP internal/external, scapular Y, axillary views left shoulder demonstrate: Glenohumeral joint space preserved. Mild degenerative changes AC joint with osteophyte formation. Type II acromion. Calcification adjacent to the greater tuberosity. MRI left shoulder obtained on April 02, 2024, images and report independent reviewed: Supraspinatus tendinosis with low-grade bursal sided and interstitial tearing. Calcific tendinitis deposition infraspinatus. AC joint arthritis. Subacromial bursitis. Mild glenohumeral arthritis with subchondral cystic changes and degenerative labral tearing Impression: Left shoulder calcific tendinitis, AC joint arthritis.Plan: Reviewed MRI results with the patient today demonstrating calcific tendinitis, AC joint arthritis, and rotator cuff tendinosis with some low-grade tearing. We discussed options including continued conservative treatment, injections, anti-inflammatories, injections, or surgery: Left shoulder diagnostic arthroscopy, subacromial decompression, distal clavicle excision, debridement, possible rotator cuff repair, possible biceps tenodesis. Reviewed risks, benefits, and alternatives to the procedure. Patient reports overall good function although still having pain. He requested corticosteroid injection today. He will follow-up again in 6 weeks. Updated work note was provided to continue work without restrictions. Bro Andrade MD [address] [place] [address] [address] [facility], [place], [address], [facility] 04/19/2024 12:46:18 05/31/2024 text/html Chief complaint: Left shoulder injury Interval history: Patient had steroid injection at last visit April 19, 2024. He reports significant relief after the injection. May have started to have some recurrence of the pain over the past week, he rates his symptoms very mild at this time. Rates his pain level 1 out of 10 with certain shoulder positions. He continues to work without restrictions.To recap last visit April 19, 2024:: Patient here today to review MRI left shoulder. He reports his pain 3 out of 10 and varies in intensity based on activity. He continues to work without restrictions.To recap last visit on April 19, 2024 patient is a 68-year-old male here today for Worker's Compensation related left shoulder injury. 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 He continues to have shoulder pain, weakness, limited function after this injury. He reports his pain varies in intensity and is worse with overhead motion and lifting. He rates his pain level 5 out of 10 today. He has done 4 weeks of physical therapy and continues to do home exercises without any noticeable improvement. He denies any prior shoulder injuries or limitations. 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 SIDE: LeftGENERAL: Appears comfortable.INSPECTIO N: No muscle atrophy. Normal deltoid contour. No shoulder rounding/scapular protractionPALPATION: No AC joint tenderness. No Bicipital Groove tendernessNECK EXAM: Full flexion and extension. Negative Spurling s UPPER EXTREMITY NEUROVASCULAR EXAM: No motor or sensory deficitsACTIVE/PASSIV E ROM: Forward elevation 180 degrees, External rotation 70 degrees, Internal rotation T12. No significant pain through range of motion. Mild crepitus with range of motion.ROTATOR CUFF TESTING: Supraspinatus strength testin/5. Infraspinatus strength testin/5. Subscapularis Strength Testin/5. He reports pain with rotator cuff strength testNEER: NegativeHAWKINS: NegativeOBRIEN: NegativeANTERIOR/POST ERIOR LOAD AND SHIFT: NegativeSULCUS: Negative CONTRALATERAL SIDE:ROM full, 5/5 strength, No atrophy. No evidence of instability of the shoulder. Negative impingement signs. Negative AC joint tenderness. Negative Speed's, Negative O'Briens, Negative Lina. Imaging previously reviewed: X-rays 4 views ordered, obtained, and personally reviewed today AP internal/external, scapular Y, axillary views left shoulder demonstrate: Glenohumeral joint space preserved. Mild degenerative changes AC joint with osteophyte formation. Type II acromion. Calcification adjacent to the greater tuberosity. MRI left shoulder obtained on April 02, 2024, images and report independent reviewed: Supraspinatus tendinosis with low-grade bursal sided and interstitial tearing. Calcific tendinitis deposition infraspinatus. AC joint arthritis. Subacromial bursitis. Mild glenohumeral arthritis with subchondral cystic changes and degenerative labral tearing Impression: Left shoulder calcific tendinitis, AC joint arthritis, symptoms improved after injection.Plan: Patient reporting significant relief after injection. Plan for continued conservative care. If symptoms worsen/recur we discussed options including anti-inflammatories, PT, repeat injection, or surgery:: Left shoulder diagnostic arthroscopy, subacromial decompression, distal clavicle excision, debridement, possible rotator cuff repair, possible biceps tenodesis. Updated work note provided. Follow-up as symptoms dictate at this point. Bro Andrade MD [address] [place] [address] [address], [place], [address], [facility] 05/31/2024 12:27:37 03/21/2025 text/html Chief complaint: Left shoulder pain HPI: Patient is a 68-year-old male here today for Worker's Compensation related left shoulder injury. 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 He continues to have shoulder pain, weakness, limited function after this injury. He reports his pain varies in intensity and is worse with overhead motion and lifting. He rates his pain level 5 out of 10 today. He has done 4 weeks of physical therapy and continues to do home exercises without any noticeable improvement. He denies any prior shoulder injuries or limitations. 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 To recap last visit April 19, 2024:: Patient here today to review MRI left shoulder. He reports his pain 3 out of 10 and varies in intensity based on activity. He continues to work without restrictions. Interval history March 21, 2025: Patient following today for his left shoulder. Started have recurrence of his pain beginning around December 2024. He reports pain with repetitive activity, overhead lifting. He continues to work without restrictions and has been modifying how he uses his shoulder to avoid pain. He has been using [id number] anti-inflammatories SIDE: LeftGENERAL: Appears comfortable.INSPECTIO N: No muscle atrophy. Normal deltoid contour. No shoulder rounding/scapular protractionPALPATION: Positive AC joint tenderness. No Bicipital Groove tendernessNECK EXAM: Full flexion and extension. Negative Spurling s UPPER EXTREMITY NEUROVASCULAR EXAM: No motor or sensory deficitsACTIVE/PASSIV E ROM: Forward elevation 180 degrees, External rotation 70 degrees, Internal rotation T12. . Mild crepitus and bursal irritability with range of motion.ROTATOR CUFF TESTING: Supraspinatus strength testin/5. Infraspinatus strength testin/5. Subscapularis Strength Testin/5. Persistent pain with rotator cuff strength testingNEER: PositiveHAWKINS: PositiveOBRIEN: Positive Cross-body: PositiveANTERIOR/POST ERIOR LOAD AND SHIFT: NegativeSULCUS: Negative CONTRALATERAL SIDE:ROM full, 5/5 strength, No atrophy. No evidence of instability of the shoulder. Negative impingement signs. Negative AC joint tenderness. Negative Speed's, Negative O'Briens, Negative Lina. Imaging previously reviewed: X-rays 4 views ordered, obtained, and personally reviewed today AP internal/external, scapular Y, axillary views left shoulder demonstrate: Glenohumeral joint space preserved. Mild degenerative changes AC joint with osteophyte formation. Type II acromion. Calcification adjacent to the greater tuberosity. MRI left shoulder obtained on April 02, 2024, images and report independent reviewed: Supraspinatus tendinosis with low-grade bursal sided and interstitial tearing. Calcific tendinitis deposition infraspinatus. AC joint arthritis. Subacromial bursitis. Mild glenohumeral arthritis with subchondral cystic changes and circumferential degenerative labral tearing Impression: Left shoulder partial-thickness rotator cuff tear, calcific tendinitis, AC joint arthritis.Plan: Patient reporting gradual worsening of his shoulder pain since December 2024. He continues to work without restrictions. We discussed options including continuing anti-inflammatories, repeat corticosteroid injection, or surgical intervention: Left shoulder diagnostic arthroscopy, subacromial decompression, distal clavicle excision, debridement of calcific tendinitis, possible rotator cuff repair, possible biceps tenodesis. Given persistent symptoms now present since work related injury in October of 2023 he would be interested in moving forward with surgery. Have recommended obtaining new MRI as it has been over a year since the previous study. His field adjuster accompanied him for today's visit and was updated on the plan. His current shoulder pain is related to the initial injury November 26, 2023. Updated work note was provided. He will follow-up in 4 weeks to review results from the MRI. Bro Andrade MD [address] [place] [address], [place], [address], [facility] 03/21/2025 19:00:18 04/18/2025 text/html Chief complaint: Left shoulder pain HPI: Patient is a 68-year-old male here today for Worker's Compensation related left shoulder injury. 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 He continues to have shoulder pain, weakness, limited function after this injury. He reports his pain varies in intensity and is worse with overhead motion and lifting. He rates his pain level 5 out of 10 today. He has done 4 weeks of physical therapy and continues to do home exercises without any noticeable improvement. He denies any prior shoulder injuries or limitations. 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 To recap last visit April 19, 2024:: Patient here today to review MRI left shoulder. He reports his pain 3 out of 10 and varies in intensity based on activity. He continues to work without restrictions. Interval history March 21, 2025: Patient following today for his left shoulder. Started have recurrence of his pain beginning around December 2024. He reports pain with repetitive activity, overhead lifting. He continues to work without restrictions and has been modifying how he uses his shoulder to avoid pain. He has been using [id number] anti-inflammatories Interval history April 18, 2025: Patient here today to review MRI results left shoulder he reports no significant changes from last visit. Continues to have persistent, severe shoulder pain affecting his ability to work, exercise, perform recreational activities such as playing basketball and tennis. SIDE: LeftGENERAL: Appears comfortable.INSPECTIO N: No muscle atrophy. Normal deltoid contour. No shoulder rounding/scapular protractionPALPATION: Positive AC joint tenderness. Positive bicipital Groove tendernessNECK EXAM: Full flexion and extension. Negative Spurling s UPPER EXTREMITY NEUROVASCULAR EXAM: No motor or sensory deficitsACTIVE/PASSIV E ROM: Forward elevation 180 degrees, External rotation 70 degrees, Internal rotation T12. . Mild crepitus pain, and bursal irritability with range of motion.ROTATOR CUFF TESTING: Supraspinatus strength testin/5. Infraspinatus strength testin/5. Subscapularis Strength Testin/5. Reports pain reproducible with rotator cuff strength testingNEER: PositiveHAWKINS: PositiveOBRIEN: Positive with 4/5 strengthCross-body: PositiveANTERIOR/POST ERIOR LOAD AND SHIFT: NegativeSULCUS: Negative CONTRALATERAL SIDE:ROM full, 5/5 strength, No atrophy. No evidence of instability of the shoulder. Negative impingement signs. Negative AC joint tenderness. Negative Speed's, Negative O'Briens, Negative Lina. Imaging previously reviewed: X-rays 4 views ordered, obtained, and personally reviewed today AP internal/external, scapular Y, axillary views left shoulder demonstrate: Glenohumeral joint space preserved. Mild degenerative changes AC joint with osteophyte formation. Type II acromion. Calcification adjacent to the greater tuberosity. MRI left shoulder obtained on April 02, 2024, images and report independent reviewed: Supraspinatus tendinosis with low-grade bursal sided and interstitial tear and low-grade partial-thickness articular sided tear of infraspinatus. Calcific tendinitis deposition infraspinatus. AC joint arthritis. Subacromial bursitis. Mild glenohumeral arthritis with subchondral cystic changes and circumferential degenerative labral tearing MRI left shoulder obtained on April 18, 2025, images and report independently reviewed: Unchanged appearance of the rotator cuff with tendinosis and partial-thickness primarily interstitial supraspinatus tear. Calcific tendinitis deposition is not clearly delineated. There is advanced AC joint arthritis with osteophyte formation, capsular thickening and bone marrow edema. Mild glenohumeral joint arthritis with subchondral cystic changes and degenerative labral fraying/tearing. Biceps tendon appears intact with mild thickening consistent with tendinosis and located within the groove. Impression: Left shoulder partial-thickness rotator cuff tear,, AC joint arthritis. Biceps tendinitisPlan:Review ed diagnosis with the patient today. Treatment options discussed including steroid injections, physical therapy, activity modification, anti-inflammatory medication, or surgical intervention. Proposed procedure: Left shoulder: Diagnostic arthroscopy, subacromial decompression, distal clavicle excision, limited debridement, possible extensive debridement, possible rotator cuff repair, possible biceps tenodesis. We reviewed the nature of the procedure, reasonable expectations, anticipated rehabilitation timeline, and restrictions. Risks, benefits, and alternatives of the procedure were discussed at length with the patient. Risks discussed included but were not limited to bleeding, infection, damage to neurovascular structures, pain after surgery, incomplete or temporary symptom relief, inability to return to previous level of activity, shoulder stiffness, rotator cuff retear, Sandro deformity, medical and anesthesia related complications, and thromboembolic events. There may be permanent functional limitations after rotator cuff repair. Patient had a chance to have all questions answered today. Patient requests moving forward with surgical scheduling. Patient will benefit from an ultrasound guided pre-operative nerve block for post operative pain control. It will limit the anesthetic needs during surgery and will aid in discharge from the PACU in a timely fashion. Anesthesia will be consulted for the procedure. He will continue working without restrictions. Sling was provided today. The patient will be provided a shoulder sling/immobilizer. This will be medically necessary to support and protect the shoulder after surgery. Bro Andrade MD [address], [place], [address], [facility] 04/18/2025 12:41:46 06/06/2025 text/html I am seeing the patient today under the supervision of Jon who was available but who did not see the patient. Surgery: Left SAD/DCE with arthroscopic rotator cuff repair and biceps tenodesis Interval History: Patient today for initial postoperative visit, patient has been compliant utilizing the sling, following postoperative instructions given at the surgery center. Past family, medical, social history and review of systems have been reviewed and updated on the medical history sheet saved to the patient's chart. A 12-point review of systems is negative x12 except as noted above and/or on the medical history sheet. Examination: Shoulder demonstrates well-healed incision, sutures removed, Steri-Strips applied, normal deltoid sensation, neurovascular status normal. Impression: s/p Left Shoulder surgery outlined above Plan: Recommendations made to continue following postoperative instructions, continued daily pendulum related exercises and use of sling and elbow range of motion to tolerance. We will initiate physical therapy at 3 weeks postoperatively to begin with passive range of motion, progress to active assisted range of motion and eventually active range of motion by 8 weeks, light strengthening to begin at approximately 3 months. Patient to be reassessed an approximate 7 weeks for routine follow-up care. Ifeanyi Briceno PA-C [address], [place], [address], [facility] 06/06/2025 10:38:37
--- OUTSIDE RECORDS SUMMARY | 2025-06-15 11:17 | XMS_ITS | Encounter Summary ---
Author Organization [facility] Address [address] [place] [phone] Phone Care Team Providers Care Engineering Document Control Clerk Name Role Phone Betty Barber MD Primary Care Provid er Encounter Details Date Type Department Care Team ([facility] st Contact Info) Description 02/17/2023 Procedure Pass [facility] Endoscopy Admitting Dept Virtual Department [address] [place] [address] Social History Tobacco Use Types Packs/Day Years Used Date Smoking Tobacco: Former Cigarettes Q uit: 1993 Smokeless Tobacco: Never Alcohol Use Standard Drinks/Week Comments Yes 0 [...] on file Sexual Orientation Not on file documented as of this encounter Plan of Treatment Not on file documented as of this encounter Visit Diagnoses Not on filedocumented in this encounter Care Teams Engineering Document Control Clerk Relationship Specialty Start Date End Date [facility] [address] [id number] PCP - General Internal Medicine 02/04/23 documented as of this encounter Additional Source Comments The information contained in this document represents components of the legal health record. It is not the complete legal health record.[facility]
--- OUTSIDE RECORDS SUMMARY | 2025-06-15 11:18 | XMS_ITS ---
Author Name [facility] Organization Unknown History of Medication Use Medication Directions Dispensed Refills Start Date End Date Stat doxycycline (ADOXA) 100 MG tablet Take 1 tablet (100 mg total) by mouth every 12 (twelve) hours around the clock. 05/22/2025 active finasteride (PROSCAR) 5 MG tablet Take 5 mg by mouth nightly. active terazosin (HYTRIN) 5 MG capsule Take 5 mg by mouth nightly. 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 active 2025-03-21 ProblemAct [facility] Chronic pansinusitis active EncounterDiagnosisA ct [facility] Hyperlipidemia active 2025-05-16 ProblemAct [facility] Increased frequency of urination active 2025-05-16 ProblemAct [facility] Seasonal allergic rhinitis active 2025-05-16 ProblemAct [facility] Anxiety active 2025-05-16 ProblemAct [facility] Immunizations Vaccine Date Source Lot Number Status Influenza Whole 06/13/2019 CCT UNK completed Zoster Vaccine Recombinant (Shingrix) 08/15/2018 CCT [id number] completed Influenza Virus Trivalent Sp lit Vaccine (MDV) IM 07/14/2018 CCT UNK completed Influenza Virus Trivalent Sp lit Vaccine (MDV) IM 06/25/2018 CCT [id number] completed Influenza Virus Trivalent Sp lit Vaccine (MDV) IM 07/02/2017 CCT [id number] completed Influenza Virus Trivalent Sp lit Vaccine (MDV) IM 06/24/2017 CCT UNK completed Influenza Virus Trivalent Sp lit Vaccine (MDV) IM 07/25/2016 [facility] [id number] completed Tdap 07/25/2016 CCT [id number] completed Influenza Virus Trivalent Sp lit Vaccine (MDV) IM 07/06/2015 [facility] [id number] completed Encounters Encounter Type Encounter Reason Primary Diagnosis Location Date Ambulatory Chronic pansinusitis Chronic pansinusitis [employer] 05/16/2025 Care Team Organization Name Specialty Phone Email Start Date End Morales saba [employer] 05/16/2025 06/14/2025 [employer] Betty Barber Primary Care 05/16/2025 [employer] 04/20/2025
--- OUTSIDE RECORDS SUMMARY | 2025-06-15 11:18 | XMS_ITS | Encounter Summary ---
Author Organization [facility] Address [address] [place] [phone] Phone Care Team Providers Care Developer [employer] Name Role Phone Kirstin Melchor Primary Care Provider [phone] Betty Barber MD Primary Care Provid er Encounter Details Date Type Department Care Team (Late st Contact Info) Description 12/08/2017 Procedure Pass [facility]oscopy Admitting Dept Virtual Department [address] [place] [phone] Social History Tobacco Use Types Packs/Day Years Used Date Smoking Tobacco: Never Smokeless Tobacco: Never Alcohol Use Standard Drinks/Week Comments No 0 (1 standard drink = 0.6 oz pur e alcohol) Sex and Gender Information Value Date Recorded Sex Assigned at Not on file Legal Sex Male 9:52 PM EDT Gender Identity Not on file Sexual Orientation Not on file documented as of this encounter Plan of Treatment Not on file documented as of this encounter Visit Diagnoses Not on filedocumented in this encounter Care Teams Developer [employer] Relationship Specialty Start Date End Date Kirstin Melchor FNP [address] [place] [phone] [email or web address] PCP - General Family Medicine 12/08/17 02/03/23 [facility] [address] [id number] PCP - General Internal Medicine 02/04/23 documented as of this encounter Additional Source Comments The information contained in this document represents components of the legal health record. It is not the complete legal health record.[facility]
--- OUTSIDE RECORDS SUMMARY | 2025-06-15 11:18 | XMS_ITS | Encounter Summary ---
Author Organization [facility] Address [address] [place] [phone] Phone Care Team Providers Care Advanced Manufacturing Vice President Name Role Phone MelchorKirstin dominguez Enrique TORRES Primary Care Provider [phone] Betty Barber MD Primary Care Provid er Encounter Details Date Type Department Care Team (Latest Contact Info) Description 09/12/2021 Transcribe Orders Virtual Department [address] [place] [address] Jamal Colindres DC [address] [place] [address] [phone] Low back pain, unspecified back pain laterality, unspecified chronicity, unspecified whether sciatica present (Primary Dx) Social History Tobacco Use Types Packs/Day Years [...] on file documented as of this encounter Results * XR LUMBOSACRAL SPINE 4 OR MORE VIEWS (09/18/2021 8:45 AM EST) Anatomical Region Laterality Modality L-spine Computed Radiogr aphy 09/18/2021 10:4 2 AM EST Impressions 09/18/2021 10:47 AM EST 1. Severe degenerative disc and endplate changes at L5-S1, mildly progressed from 01/12/2014. Less prominent degenerative disc and endplate changes in the lumbar spine more proximally. 2. Grade 1 spondylolisthesis of L4 on L5 likely related to prominent facet arthropathy at this level. 3. Straightening of the lumbar lordosis which may be due to spasm. Narrative 09/18/2021 10:47 AM EST HISTORY: Intermittent chronic lower back pain. COMPARISON: Lumbar spine x-ray 01/12/2014 VIEWS: AP, lateral and bilateral oblique views. FINDINGS: Similar curvature of the lumbar spine. Straightening of the lumbar lordosis. No compression fractures. Mild grade 1 spondylolisthesis of L4 and L5 is stable or minimally progressed. Development of mild retrolisthesis of L3 and L4. Severe disc space narrowing and sclerotic degenerative endplate changes at L5-S1 with evidence of vacuum disc phenomenon. Mild progression from 01/12/2014. Mild- moderate disc space narrowing and degenerative endplate changes at L2-L3, L3-L4 and L4- L5. Evidence of moderate-severe facet arthropathy at L4-L5. Less prominent facet arthropathy at L5-S1 and L3-L4. Procedure Note Christiano Childress MD - 09/18/2021 HISTORY: Intermittent chronic lower back pain. COMPARISON: Lumbar spine x-ray 01/12/2014 VIEWS: AP, lateral and bilateral oblique views. FINDINGS: Similar curvature of the lumbar spine. Straightening of the lumbarlordosis. No compression fractures. Mild grade 1 spondylolisthesis of L4 and L5 isstable or minimally progressed. Development of mild retrolisthesis of L3and L4. Severe disc space narrowing and sclerotic degenerative endplate changes atL5-S1 with evidence of vacuum disc phenomenon. Mild progression from01/12/2014. Mild- moderate disc space narrowing and degenerative endplatechanges at L2-L3, L3-L4 and L4-L5. Evidence of moderate-severe facet arthropathy at L4-L5. Less prominentfacet arthropathy at L5-S1 and L3-L4. IMPRESSION: 1. Severe degenerative disc and endplate changes at L5-S1, mildlyprogressed from 01/12/2014. Less prominent degenerative disc and endplatechanges in the lumbar spine more proximally. 2. Grade 1 spondylolisthesis of L4 on L5 likely related to prominent facetarthropathy at this level. 3. Straightening of the lumbar lordosis which may be due to spasm. Jamal Colindres DC IMG XR SPINE Final Res ult documented in this encounter Visit Diagnoses Diagnosis Low back pain, unspecified back pain laterality, unspecified chronicity, unspecified whether sciatica present- Primary Low back pain, unspecified back pain laterality, unspecified chronicity, unspecified whether sciatica present documented in this encounter Care Teams Advanced Manufacturing Vice President Relationship Specialty Start Date End Date Kirstin Melchor FNP [address] [place] [id number] [email or web address] PCP - General Family Medicine 12/08/17 02/03/23 Betty Barber MD [address] [place] [id number] PCP - General Internal Medicine 02/04/23 documented as of this encounter Additional Source Comments The information contained in this document represents components of the legal health record. It is not the complete legal health record.[facility]
--- OUTSIDE RECORDS SUMMARY | 2025-06-15 11:18 | XMS_ITS | Clinical Summary ---
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 Active terazosin (HYTRIN) 5 MG capsule Take 5 mg by mouth nightly. Active doxycycline (ADOXA) 100 MG tabletIndications :Chronic pansinusitis Take 1 tablet (100 mg total) by mouth every 12 (twelve) hours around the clock. 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 Encounters Date Type Department Care Team Description 05/22/2025 Telephone [facility] [address] [phone] Kingsley Saucedo MD 05/16/2025 12:45 PM EDT Office Visit [facility] [address] [phone] Kingsley Saucedo MD Facial pain (Primary Dx); Chronic pansinusitis; Deviated nasal septum from Last 3 Months Immunizations Immunization Administration Dates Next Due Influenza Virus Trivalent Sp lit Vaccine (MDV) IM 07/14/2018,06/25/2018,07/02/2017,2016,07/25/2016,07/06/2015 Influenza Whole 06/13/2019 Tdap 07/25/2016 Zoster Vaccine Recombinant (Shingrix) 08/15/2018 Social History Tobacco Use Types Packs/Day Years Used Date Smoking Tobacco: Former Cigarettes Q uit: 05/31/1993 Passive Smoke Exposure: Past Smokeless Tobacco: Never Tobacco Cessation:Counseling Given: Not Answered Alcohol Use Standard Drinks/Week Comments Not Currently 0 (1 standard drink = 0.6 oz pur e alcohol) Sex and Gender Information Value Date Recorded Sex Assigned at Not on file Legal Sex Male 8:26 AM EDT Gender Identity Not on file Sexual Orientation Not on file Last Filed Vital Signs Vital Sign Reading Time Taken Comments Blood Pressure - - Pulse - - Temperature - - Respiratory Rate - - Oxygen Saturation - - Inhaled Oxygen Concentration - - Weight 83.9 kg (185 lb) 05/16/2025 12:43 PM EDT Height 177.8 cm (5' 10 ) 05/16/2025 12:43 PM EDT Body Mass Index 26.54 05/16/2025 12:43 PM EDT Plan of Treatment Health Maintenance Due Date Last Done Comments Advance Care Planning 1955 Hepatitis C Virus Screening 1955 Colonoscopy 2002 Pneumococcal Vaccines 50+ (1 of 1 - PCV) 11/30/2007 Zoster (Shingles) Vaccine (2 of 2) 10/10/2018 08/15/2018 Abdominal Aortic Aneurysm (AAA) Screening 2022 Influenza Vaccine 03/31/2025 06/13/2019, , 06/25/2018, Additional history exists COVID-19 Vaccine (3 - season) 2025 12/23/2020, 11/25/2020 DTaP/Tdap/Td Vaccines (2 - Td or Tdap) 07/25/2026 07/25/2016 RSV Vaccine 50 years and older and Patients (1 - 1-dose 75+ series) 2032 Hepatitis B Vaccines Aged Out No long er eligible based on patient's age to complete this topic Procedures Procedure Name Priority Date/Time Associated Diagnosis Comments CT SINUSES W/O CONTRAST Routine 05/19/2025 9:32 AM EDT Chronic pansinusitis Deviated nasal septum from Last 3 Months Results * CT Sinuses w/o contrast (05/19/2025 9:32 AM EDT) Anatomical Region Laterality Modality Face Computed Tomogra phy 05/19/2025 9:30 AM EDT 05/19/2025 9:30 AM EDT Impressions 05/21/2025 5:49 PM EDT Mild to moderate circumferential mucosal thickening in the right maxillary sinus with opacification of the right infundibulum. There is sclerosis and thickening of the crews of the right maxillary sinus with some atelectasis of the anterior and posterior crews. Significant rightward deviation of the nasal septum. Electronically signed by: Sage Morataya MD 05/21/2025 05:49 PM EDT RP Thank you for referring your patient to us, Sage Morataya MD [phone] (Electronically Signed - 05/21/2025 17:49) Narrative 05/21/2025 5:49 PM EDT EXAMINATION: CT MAXILLOFACIAL WITHOUT CONTRAST CLINICAL INFORMATION: Chronic Sinusitis, deviated nasal septum COMPARISON: None available. TECHNIQUE: Multidetector helical imaging was performed in the axial plane with generation of coronal and sagittal reformatted images. This CT examination was performed using dose optimization techniques as appropriate, variously including the following: *Automated exposure control *Adjustment of mA and/or kV according to patient size (this includes techniques or standardized protocols for targeted exams where dose is matched to indication/reason for exam; i.e. extremities or head) *Use of iterative reconstruction technique DLP: 403.[address] and cardiac nuclear medicine (myocardial perfusion studies) imaging reports in the past 12-month period: 0 FINDINGS: The frontal sinuses are patent. The frontoethmoidal recesses are patent. The ethmoid air cells are patent. The sphenoethmoidal recesses are patent. The sphenoid sinuses are patent. The roof of the ethmoids without definite evidence of defect. The olfactory fossae measure up to 7 mm. There is supraorbital pneumatization above the right anterior ethmoidal artery notch. There is mild to moderate circumferential mucosal thickening in the right maxillary sinus. The right infundibulum is opacified. The right middle meatus is patent. There is sclerosis and thickening of the crews of the right maxillary sinus with some atelectasis of the anterior and posterior crews. The left maxillary sinus is patent. The left ostiomeatal unit is patent. There is significant rightward deviation of the nasal septum. The nasal cavity is patent. Procedure Note Sage Morataya MD - 05/21/2025 EXAMINATION: CT MAXILLOFACIAL WITHOUT CONTRAST CLINICAL INFORMATION: Chronic Sinusitis, deviated nasal septum COMPARISON: None available. TECHNIQUE: Multidetector helical imaging was performed in the axial plane withgeneration of coronal and sagittal reformatted images. This CT examination was performed using dose optimization techniques asappropriate, variously including the following: *Automated exposure control *Adjustment of mA and/or kV according to patient size (this includestechniques or standardized protocols for targeted exams where dose ismatched to indication/reason for exam; i.e. extremities or head) *Use of iterative reconstruction technique DLP: 403.[address] and cardiac nuclear medicine (myocardial perfusionstudies) imaging reports in the past 12-month period: 0 FINDINGS: The frontal sinuses are patent. The frontoethmoidal recesses are patent.The ethmoid air cells are patent. The sphenoethmoidal recesses are patent.The sphenoid sinuses are patent. The roof of the ethmoids without definite evidence of defect. Theolfactory fossae measure up to 7 mm. There is supraorbital pneumatizationabove the right anterior ethmoidal artery notch. There is mild to moderate circumferential mucosal thickening in the rightmaxillary sinus. The right infundibulum is opacified. The right middlemeatus is patent. There is sclerosis and thickening of the crews of theright maxillary sinus with some atelectasis of the anterior and posterior crews. The left maxillary sinus is patent. The left ostiomeatal unit is patent. There is significant rightward deviation of the nasal septum. The nasalcavity is patent. IMPRESSION: Mild to moderate circumferential mucosal thickening in the right maxillarysinus with opacification of the right infundibulum. There is sclerosis andthickening of the crews of the right maxillary sinus with some atelectasisof the anterior and posterior crews. Significant rightward deviation of the nasal septum. Electronically signed by: Sage Morataya MD 05/21/2025 05:49 PM EDT RPWorkstation: [id number] Thank you for referring your patient to us, Sage Morataya MD [phone] (Electronically Signed - 05/21/2025 17:49) us Kingsley Saucedo MD IMG CT ORDERABLES Final Resul t from Last 3 Months Insurance MEDICARE PART A & B [facility] Care Teams Bench Worker Apprentice Relationship Specialty Start Date End Date Betty Barber MD [address] [place] [id number] PCP - General 05/16/25
== END 2025-06-15 10:38 | disposition home or self-care (01) ==
LOC: HO.HUSH 09:44
PROVIDERS: PCP Pediatrics; Visit Provider Urology
DX: Z13.9 Encounter for screening, unspecified (principal)

== ENCOUNTER → 2025-06-15 09:43 | Outpatient (BNVA) | payer MEDICARE, BC, SELFPAY | PROVIDERS: PCP Pediatrics; Visit Provider Urology | DX: R97.20 Elevated prostate specific antigen [PSA] (principal); N40.0 Benign prostatic hyperplasia without lower urinary tract symptoms; R35.1 Nocturia; Z87.438 Personal history of other diseases of male genital organs | CPT/HCPCS: 51798; 81003; 99212 ==